=== PATIENT | male | born 1935 | race Caucasian/White ===

== ENCOUNTER 2016-09-05 15:33 | Inpatient (IN) | payer OTHER, MEDICARE ==
[~2016-09-05] VITALS: Ht 172.7 cm; Wt 80.2 kg
[~2016-09-05 15:33] MED LIST: AMLO10TA2 PO; AMLO5TAB2 PO; APIX5TAB PO; ASPI-496 PO; ATOR20TA9 PO; BACL-19 PO; CALC0.25 PO; CHOL20003 PO; CLON0.1T PO; DILT60TA30 PO; FAMO-79 PO; FINA5TAB4 PO; FOLI-17 PO; FURO40TA6 PO; GABA300C10 PO; GLIP5TAB10 PO; HYDR-3342 PO; HYDR-3343 PO; LISI40TA PO; METO50TA82 PO; MULT1TAB16 PO; OMEG-14 PO; POTA10TA31 PO; PRED10TA PO; SIMV40TA3 PO; TAMS0.4C2 PO
[2016-09-05] MEDS ORDERED: MAGNESIUM SULFATE 1 GM, THIAMINE 100 MG, FOLIC ACID 1 MG, MVI ADULT 10 ML in SODIUM CHL... IV ONE (17:30)
[2016-09-05] MEDS ORDERED: LORazepam 1MG TABLET PO ONE (17:30)
[2016-09-05] MEDS ORDERED: LORazepam 2 MG/ML, 1ML ONE ×2 (17:46→20:06)
[2016-09-05] MEDS ORDERED: LORazepam 1MG TABLET ONE (17:56)
[2016-09-05 18:10] LABS: ASPARTATE AMINO TRANSFERASE 109 U/L (15-37); BLOOD UREA NITROGEN 24 mg/dL (7-18)
[2016-09-05 18:49] LABS: IS PT STATUS REG ER OR PRE ER? YES
[2016-09-05] MEDS ORDERED: LORazepam 2 MG/ML, 1ML IVPush STA (19:52)
[2016-09-05] MEDS ORDERED: DILTIAZEM 5 MG/ML, 5ML ONE (20:13)
[2016-09-05] MEDS ORDERED: DILTIAZEM 5 MG/ML, 5ML IVPush ONE (20:30)
[2016-09-05] MEDS ORDERED: LORazepam 2 MG/ML, 1ML IVPush ONE (20:30)
[2016-09-05] MEDS ORDERED: SODIUM CHLORIDE 0.9% 1,000 ML IV SCH (20:37)
[2016-09-05] MEDS ORDERED: ENOXAPARIN 40 MG/0.4 ML SQ SCH (21:00)
[2016-09-05] MEDS ORDERED: LORazepam 2 MG/ML, 1ML IV PRN (21:00)
[2016-09-05] MEDS ORDERED: LORazepam 0.5MG TABLET PO PRN (21:00)
[2016-09-05] MEDS ORDERED: ENALAPRILAT 1.25 MG/ML, 2ML IV PRN (21:00)
[2016-09-05] MEDS ORDERED: LABETALOL 5MG/ML, 20ML IVPush PRN (21:00)
[2016-09-05] MEDS ORDERED: HYDROcodone/APAP 5/325 TABLET PO PRN (21:00)
[2016-09-05] MEDS ORDERED: DOCUSATE 100 MG CAPSULE PO PRN (21:00)
[2016-09-05] MEDS ORDERED: METOPROLOL TARTRATE 25 MG TABLET PO SCH (21:00)
[2016-09-05] MEDS ORDERED: POLYETHYLENE GLYCOL 17 GM PACKET PO PRN (21:00)
[2016-09-05] MEDS ORDERED: LORazepam 1MG TABLET PO PRN (21:00)
[2016-09-05] MEDS ORDERED: ONDANSETRON 2MG/ML, 2ML IVPush PRN (21:00)
[2016-09-05] MEDS ORDERED: hydrALAzine 20 MG/ML, 1ML IV PRN (21:00)
[2016-09-05] MEDS ORDERED: ACETAMINOPHEN 325 MG TABLET PO PRN (21:00)
[2016-09-05] MEDS ORDERED: METOPROLOL TARTRATE 50 MG TABLET PO SCH (21:00)
[2016-09-05] MEDS ORDERED: morphine SULFATE 10 MG/ML, 1ML IVPush PRN (21:00)
[2016-09-05] MEDS: APIXABAN/LOVENOX MC SCH ×3 (22:30→23:45)
[2016-09-05] MEDS ORDERED: APIXABAN/LOVENOX MC SCH (22:30)
[2016-09-05] MEDS: LORazepam 2 MG/ML, 1ML IV PRN (22:34)
[2016-09-05 22:48] VITALS: BP 134/64
[2016-09-06] MEDS: APIXABAN/LOVENOX MC SCH ×3 (00:30→01:45)
[2016-09-06 01:26] VITALS: BP 156/80
[2016-09-06] MEDS: GABAPENTIN 300 MG CAPSULE PO SCH ×2 (01:34→20:28)
[2016-09-06] MEDS: METOPROLOL TARTRATE 50 MG TABLET PO SCH ×3 (01:34→20:28)
[2016-09-06] MEDS: MULTIVITAMINS/MINERALS TABLET PO SCH ×3 (01:34→20:28)
[2016-09-06] MEDS: FUROSEMIDE 40 MG/4 ML IV SCH ×2 (01:49→10:36)
[2016-09-06] MEDS: APIXABAN 5 MG TABLET PO SCH ×3 (02:00→20:27)
[2016-09-06] MEDS: LORazepam 2 MG/ML, 1ML IV PRN (02:10)
[2016-09-06 05:37] LABS: BLOOD UREA NITROGEN 23 mg/dL (7-18)
[2016-09-06 05:40] LABS: ASPARTATE AMINO TRANSFERASE 74 U/L (15-37)
[2016-09-06 06:53] VITALS: BP_SYST 162; BP_SYST 175; BP_DIAS 74; BP_DIAS 82
[2016-09-06] MEDS: FOLIC ACID 1 MG TABLET PO SCH (09:00)
[2016-09-06] MEDS: THIAMINE 100MG TABLET PO SCH (09:00)
[2016-09-06] MEDS: SENNA/DOCUSATE TABLET PO SCH (09:00)
[2016-09-06] MEDS: FINASTERIDE 5 MG TABLET PO SCH (09:00)
[2016-09-06] MEDS: TAMSULOSIN 0.4 MG CAP.ER.24H PO SCH (09:00)
[2016-09-06 20:09] VITALS: BP 134/69
[2016-09-07 02:57] VITALS: BP 150/78
[2016-09-07 05:30] LABS: BLOOD UREA NITROGEN 20 mg/dL (7-18)
[2016-09-07 08:47] VITALS: BP 146/77
[2016-09-07] MEDS: APIXABAN 5 MG TABLET PO SCH ×2 (08:48→20:22)
[2016-09-07] MEDS: METOPROLOL TARTRATE 50 MG TABLET PO SCH ×2 (08:48→20:23)
[2016-09-07] MEDS: FOLIC ACID 1 MG TABLET PO SCH (08:48)
[2016-09-07] MEDS: MULTIVITAMINS/MINERALS TABLET PO SCH ×2 (08:48→20:23)
[2016-09-07] MEDS: TAMSULOSIN 0.4 MG CAP.ER.24H PO SCH (08:48)
[2016-09-07] MEDS: CALCITRIOL 0.25 MCG CAPSULE PO SCH (08:49)
[2016-09-07] MEDS: THIAMINE 100MG TABLET PO SCH (08:49)
[2016-09-07] MEDS: FINASTERIDE 5 MG TABLET PO SCH (08:49)
[2016-09-07] MEDS: SENNA/DOCUSATE TABLET PO SCH (08:50)
[2016-09-07] MEDS ORDERED: MAGNESIUM SULFATE PMX 2GM/50ML 50 ML IV ONE (11:00)
[2016-09-07 13:39] VITALS: BP 105/62
[2016-09-07 19:18] VITALS: BP 162/85
[2016-09-07] MEDS: GABAPENTIN 300 MG CAPSULE PO SCH (20:23)
[2016-09-08 02:10] VITALS: BP 178/103
[2016-09-08 05:43] LABS: BLOOD UREA NITROGEN 20 mg/dL (7-18)
[2016-09-08 05:47] LABS: ASPARTATE AMINO TRANSFERASE 53 U/L (15-37)
[2016-09-08 06:52] VITALS: BP 155/100
[2016-09-08] MEDS: TAMSULOSIN 0.4 MG CAP.ER.24H PO SCH (08:26)
[2016-09-08] MEDS: APIXABAN 5 MG TABLET PO SCH ×2 (08:26→20:47)
[2016-09-08] MEDS: FOLIC ACID 1 MG TABLET PO SCH (08:26)
[2016-09-08] MEDS: METOPROLOL TARTRATE 50 MG TABLET PO SCH ×2 (08:27→21:13)
[2016-09-08] MEDS: FINASTERIDE 5 MG TABLET PO SCH (08:27)
[2016-09-08] MEDS: MAGNESIUM OXIDE 400 MG TABLET PO SCH (08:27)
[2016-09-08] MEDS: MULTIVITAMINS/MINERALS TABLET PO SCH ×2 (08:27→20:47)
[2016-09-08] MEDS: THIAMINE 100MG TABLET PO SCH (08:27)
[2016-09-08] MEDS: SENNA/DOCUSATE TABLET PO SCH (08:27)
[2016-09-08] MEDS ORDERED: MAGNESIUM SULFATE PMX 2GM/50ML 50 ML IV ONE (10:00)
[2016-09-08] MEDS: POTASSIUM CHLORIDE 20 MEQ TAB.ER.PRT PO SCH ×3 (10:59→21:14)
[2016-09-08 13:00] VITALS: BP 100/64
[2016-09-08 19:47] VITALS: BP 159/81
[2016-09-08] MEDS: GABAPENTIN 300 MG CAPSULE PO SCH (20:47)
[2016-09-09 01:05] VITALS: BP 174/81
[2016-09-09 05:56] LABS: BLOOD UREA NITROGEN 18 mg/dL (7-18)
[2016-09-09] MEDS: METOPROLOL TARTRATE 50 MG TABLET PO SCH (07:39)
[2016-09-09 07:54] VITALS: BP 174/85
[2016-09-09] MEDS: FINASTERIDE 5 MG TABLET PO SCH (08:02)
[2016-09-09] MEDS: MAGNESIUM OXIDE 400 MG TABLET PO SCH (08:02)
[2016-09-09] MEDS: MULTIVITAMINS/MINERALS TABLET PO SCH ×2 (08:02→19:41)
[2016-09-09] MEDS: THIAMINE 100MG TABLET PO SCH (08:02)
[2016-09-09] MEDS: SENNA/DOCUSATE TABLET PO SCH (08:03)
[2016-09-09] MEDS: TAMSULOSIN 0.4 MG CAP.ER.24H PO SCH (08:03)
[2016-09-09] MEDS: APIXABAN 5 MG TABLET PO SCH ×2 (08:03→19:41)
[2016-09-09] MEDS: FOLIC ACID 1 MG TABLET PO SCH (08:03)
[2016-09-09 09:38] VITALS: BP 128/73
[2016-09-09] MEDS ORDERED: MAGNESIUM SULFATE PMX 2GM/50ML 50 ML IV ONE (11:00)
[2016-09-09 14:50] VITALS: BP 111/70
[2016-09-09] MEDS: CIPROFLOXACIN OPHTH SOLN 0.3%, 5ML EACHEYE SCH ×2 (15:49→19:41)
[2016-09-09] MEDS: GABAPENTIN 300 MG CAPSULE PO SCH (19:41)
[2016-09-09] MEDS: METOPROLOL TARTRATE 25 MG TABLET PO SCH (19:41)
[2016-09-09 19:44] VITALS: BP 132/71
[2016-09-10 01:18] VITALS: BP 159/81
[2016-09-10 05:57] LABS: BLOOD UREA NITROGEN 16 mg/dL (7-18)
[2016-09-10 08:36] VITALS: BP 147/89
[2016-09-10] MEDS: THIAMINE 100MG TABLET PO SCH (08:37)
[2016-09-10] MEDS: APIXABAN 5 MG TABLET PO SCH (08:37)
[2016-09-10] MEDS: FOLIC ACID 1 MG TABLET PO SCH (08:37)
[2016-09-10] MEDS: TAMSULOSIN 0.4 MG CAP.ER.24H PO SCH (08:37)
[2016-09-10] MEDS: FINASTERIDE 5 MG TABLET PO SCH (08:37)
[2016-09-10] MEDS: SENNA/DOCUSATE TABLET PO SCH (08:38)
[2016-09-10] MEDS: MAGNESIUM OXIDE 400 MG TABLET PO SCH (08:38)
[2016-09-10] MEDS: METOPROLOL TARTRATE 25 MG TABLET PO SCH (08:38)
[2016-09-10] MEDS: MULTIVITAMINS/MINERALS TABLET PO SCH (08:38)
[2016-09-10] MEDS: CALCITRIOL 0.25 MCG CAPSULE PO SCH (08:38)
[2016-09-10] MEDS: CIPROFLOXACIN OPHTH SOLN 0.3%, 5ML EACHEYE SCH ×2 (08:38→15:31)
[2016-09-10 13:07] VITALS: BP 163/84
[2016-09-10] MEDS ORDERED: THIA100T6 PO (16:33)
[2016-09-10] MEDS ORDERED: METO25TA35 PO (16:33)
[2016-09-10] MEDS ORDERED: CIPR2.5D EACHEYE (16:33)
[2016-09-10] MEDS ORDERED: HYDR-3342 PO (16:33)
[2016-09-10] MEDS ORDERED: MAGN400T26 PO (16:33)
== END 2016-09-10 18:33 | disposition home or self-care (01) | DRG 682 ==
LOC: ED 20:00 → EDIP 20:11 → SUATTDRO 20:24 → ED 20:27 → 5SO 22:01
PROVIDERS: ADMIT Family Medicine; ATTEND Family Medicine
DX: N17.9 Acute kidney failure, unspecified (principal); E43 Unspecified severe protein-calorie malnutrition; D68.69 Other thrombophilia; F10.239 Alcohol dependence with withdrawal, unspecified; E87.1 Hypo-osmolality and hyponatremia; F32.0 Major depressive disorder, single episode, mild; I12.9 Hypertensive chronic kidney disease with stage 1 through stage 4 chronic kidney disease, or unspecified chronic kidney disease; N18.2 Chronic kidney disease, stage 2 (mild); F43.21 Adjustment disorder with depressed mood; I95.9 Hypotension, unspecified; I48.0 Paroxysmal atrial fibrillation; D69.6 Thrombocytopenia, unspecified; E78.5 Hyperlipidemia, unspecified; E83.42 Hypomagnesemia; E87.6 Hypokalemia; F41.9 Anxiety disorder, unspecified; H10.32 Unspecified acute conjunctivitis, left eye; N40.0 Benign prostatic hyperplasia without lower urinary tract symptoms; R62.7 Adult failure to thrive; Z88.6 Allergy status to analgesic agent; Z79.01 Long term (current) use of anticoagulants; Z80.9 Family history of malignant neoplasm, unspecified; Z82.49 Family history of ischemic heart disease and other diseases of the circulatory system; Z87.891 Personal history of nicotine dependence
CPT/HCPCS: 36415; 71010; 80048; 80053; 81001; 82550; 82607; 82746; 82962; 83735; 84443; 84484; 85025; 87324; 93005; 96365; 96366; 96375; J1940; J3411; J3475; J2060; J7030

== ENCOUNTER 2016-11-04 13:11 | Emergency (ER) | payer OTHER, MEDICARE ==
[~2016-11-04] VITALS: Ht 170.2 cm; Wt 71.5 kg
[~2016-11-04 13:11] MED LIST changes: +CHOL2000 PO; -CHOL20003 PO; +CIPR2.5D EACHEYE; +MAGN400T26 PO; +METO25TA35 PO; +THIA100T6 PO
[2016-11-04 13:13] VITALS: BP 169/87
== END 2016-11-04 15:39 | disposition home or self-care (01) ==
LOC: ED 15:10
DX: E11.40 Type 2 diabetes mellitus with diabetic neuropathy, unspecified (principal); E11.65 Type 2 diabetes mellitus with hyperglycemia; E78.5 Hyperlipidemia, unspecified; K21.9 Gastro-esophageal reflux disease without esophagitis; Z87.891 Personal history of nicotine dependence; I48.91 Unspecified atrial fibrillation
CPT/HCPCS: 82962; 93005; 99284

== ENCOUNTER 2016-11-13 11:11 | Emergency (ER) | payer OTHER, MEDICARE ==
[~2016-11-13] VITALS: Ht 170.2 cm; Wt 72.5 kg
[2016-11-13 11:20] VITALS: BP 175/84
== END 2016-11-13 16:53 | disposition home or self-care (01) ==
LOC: ED 15:43
DX: S00.81XA Abrasion of other part of head, initial encounter (principal); W01.0XXA Fall on same level from slipping, tripping and stumbling without subsequent striking against object, initial encounter; Y93.89 Activity, other specified; Y92.89 Other specified places as the place of occurrence of the external cause; Y99.9 Unspecified external cause status; M17.11 Unilateral primary osteoarthritis, right knee; M47.892 Other spondylosis, cervical region; M25.461 Effusion, right knee; I10 Essential (primary) hypertension; E11.65 Type 2 diabetes mellitus with hyperglycemia; K21.9 Gastro-esophageal reflux disease without esophagitis; E78.5 Hyperlipidemia, unspecified; F10.20 Alcohol dependence, uncomplicated; I48.91 Unspecified atrial fibrillation; F17.210 Nicotine dependence, cigarettes, uncomplicated
CPT/HCPCS: 70450; 72125; 99284

== ENCOUNTER → 2019-07-21 | Outpatient (CLI) | payer MEDICARE ==
[~2019-07-21] MED LIST changes: +AMLO-150 PO; -AMLO10TA2 PO; +AMLO10TA8 PO; -AMLO5TAB2 PO; +ATOR20TA37 PO; -ATOR20TA9 PO; -CLON0.1T PO; +CLON0.1T22 PO; +GLIP10TA13 PO; +LINE600T15 PO; +METF500T17 PO; +PANT40TA5 PO; +SIMV40TA20 PO; -SIMV40TA3 PO; -THIA100T6 PO; +THIA100T67 PO
== END | disposition home or self-care (01) ==
LOC: WOUND 10:37
PROVIDERS: ATTEND Nurse Practitioner Family
DX: E11.622 Type 2 diabetes mellitus with other skin ulcer (principal); L89.516 Pressure-induced deep tissue damage of right ankle; L97.311 Non-pressure chronic ulcer of right ankle limited to breakdown of skin; E11.621 Type 2 diabetes mellitus with foot ulcer; L97.511 Non-pressure chronic ulcer of other part of right foot limited to breakdown of skin; I25.10 Atherosclerotic heart disease of native coronary artery without angina pectoris; I42.9 Cardiomyopathy, unspecified; E78.5 Hyperlipidemia, unspecified; I48.0 Paroxysmal atrial fibrillation; I11.0 Hypertensive heart disease with heart failure; I50.9 Heart failure, unspecified; F32.9 Major depressive disorder, single episode, unspecified; Z87.891 Personal history of nicotine dependence
CPT/HCPCS: 97597; 99215

== ENCOUNTER 2019-07-28 08:30 | Outpatient (CLI) | payer MEDICARE | END 2019-07-28 23:59 | disposition home or self-care (01) | LOC: WOUND 08:30 | PROVIDERS: ATTEND Nurse Practitioner Family | DX: E11.622 Type 2 diabetes mellitus with other skin ulcer (principal); L89.516 Pressure-induced deep tissue damage of right ankle; L97.311 Non-pressure chronic ulcer of right ankle limited to breakdown of skin; E11.621 Type 2 diabetes mellitus with foot ulcer; L97.511 Non-pressure chronic ulcer of other part of right foot limited to breakdown of skin; I25.10 Atherosclerotic heart disease of native coronary artery without angina pectoris; I42.9 Cardiomyopathy, unspecified; E78.5 Hyperlipidemia, unspecified; I48.0 Paroxysmal atrial fibrillation; I11.0 Hypertensive heart disease with heart failure; I50.9 Heart failure, unspecified; F32.9 Major depressive disorder, single episode, unspecified; Z87.891 Personal history of nicotine dependence | CPT/HCPCS: 97597 ==

== ENCOUNTER 2019-07-30 17:30 | Inpatient (IN) | payer OTHER, MEDICARE ==
[~2019-07-30] VITALS: Ht 172.7 cm; Wt 70.2 kg
[2019-07-30] MEDS ORDERED: ACETAMINOPHEN 500 MG TABLET ONE (17:52)
[2019-07-30] MEDS ORDERED: ACETAMINOPHEN 500 MG TABLET PO ONE (18:00)
[2019-07-30] MEDS ORDERED: SODIUM CHLORIDE FLUSH 10ML SYR IVF ONE (18:00)
[2019-07-30] MEDS ORDERED: SODIUM CHLORIDE 0.9% 1,000ML IVBOLUS ONE ×2 (18:00→19:30)
[2019-07-30] MEDS ORDERED: PLEASE ENTER HEIGHT AND WEIGHT MC SCH (18:00)
[2019-07-30 18:15] LABS: MEAN CORPUSCULAR HEMOGLOBIN 33.2 pg (27.5-34.5); MEAN CORPUSCULAR HGB CONC 33.3 g/dL (33.2-36.2); MEAN CORPUSCULAR VOLUME 99.7 fL (81-97); MEAN PLATELET VOLUME 8.3 fL (7.4-10.4); PLATELET COUNT 221 x10^3/uL (130-400)
[2019-07-30 18:28] LABS: ALANINE AMINOTRANSFERASE 20 U/L (12-78); ALBUMIN 3.3 g/dL (3.4-5.0); ANION GAP 8 mmol/L (5-15); CALCIUM 9.1 mg/dL (8.5-10.1); CHLORIDE 102 mmol/L (98-107); CREATININE 1.32 mg/dL (0.7-1.3)
[2019-07-30 18:30] LABS: ALKALINE PHOSPHATASE 108 U/L (45-117); BILIRUBIN,TOTAL 0.8 mg/dL (0.2-1.0); TOTAL PROTEIN 7.3 g/dL (6.4-8.2)
[2019-07-30 18:58] LABS: BASOPHILS # (AUTO) 0.01 x10^3/uL (0-0.1); BASOPHILS % (AUTO) 0 % (0-1); EOSINOPHILS % (AUTO) 0 % (1-7); LYMPHOCYTES # (AUTO) 0.39 x10^3/uL (1-3.4); LYMPHOCYTES % (AUTO) 2 % (22-44); MD SCAN; MONOCYTES # (AUTO) 0.51 x10^3/uL (0.2-0.8); MONOCYTES % (AUTO) 3 % (2-9); NEUTROPHILS # (AUTO) 16.33 x10^3/uL (1.8-6.8); NEUTROPHILS % (AUTO) 95 % (42-75)
[2019-07-30] MEDS ORDERED: PIPERACILLIN/TAZO/PMX 3.375GM 50 ML IV ONE (19:00)
--- NOTE | 2019-07-30 19:00 | NUR ---
REPORT RECEIVED FROM TOAN WHITTINGTON, REPORT GIVEN TO TOAN KAT WHO IS ASSUMING CARE AT THIS TIME.
--- NOTE | 2019-07-30 19:03 | NUR ---
EKG IN PROGRESS AT THIS TIME.
[2019-07-30] MEDS ORDERED: DOXY100C2 PO (19:05)
--- NOTE | 2019-07-30 19:06 | NUR ---
ASSUMED CARE OF PT. PT RESTING COMFORTABLY. MONITOR IN PLACE.
[2019-07-30] MEDS ORDERED: PIPERACILLIN/TAZO/PMX 3.375GM 50 ML ONE (19:09)
[2019-07-30] MEDS ORDERED: BISACODYL 10 MG SUPP PR PRN (19:30)
[2019-07-30] MEDS ORDERED: POLYETHYLENE GLYCOL 17 GM PACKET PO PRN (19:30)
[2019-07-30] MEDS ORDERED: SODIUM CHLORIDE FLUSH 10ML SYR IVF PRN (19:30)
[2019-07-30] MEDS ORDERED: ONDANSETRON ODT 4 MG PO PRN (19:30)
[2019-07-30 20:14] VITALS: BP 126/61
[2019-07-30] MEDS: INSULIN LISPRO 100 UNITS/ML, PEN SQ-INSULIN SCH (21:32)
[2019-07-30] MEDS: ATORVASTATIN 20 MG TABLET PO SCH (21:33)
[2019-07-30] MEDS: OMEGA-3/FISH OIL CAPSULE PO SCH (21:33)
[2019-07-30] MEDS: MULTIVITAMINS/MINERALS TABLET PO SCH (21:33)
[2019-07-30] MEDS: APIXABAN 5 MG TABLET PO SCH (21:33)
[2019-07-30] MEDS: DILTIAZEM 60 MG TABLET PO SCH (21:33)
[2019-07-30] MEDS: METOPROLOL TARTRATE 50 MG TAB PO SCH (21:33)
[2019-07-30] MEDS: SODIUM CHLORIDE 0.9% 1,000 ML IV SCH (21:34)
[2019-07-30] MEDS: ACETAMINOPHEN 325 MG TABLET PO PRN (23:34)
[2019-07-31 00:38] VITALS: BP 99/59
[2019-07-31] MEDS: AMPICILLIN/SULBACTAM 3 GM in SODIUM CHLORIDE 0.9% 100 ML IV SCH ×4 (01:03→19:53)
[2019-07-31] MEDS: PANTOPRAZOLE 40MG TABLET PO SCH (05:21)
[2019-07-31 05:52] LABS: ANION GAP 6 mmol/L (5-15); CALCIUM 8.5 mg/dL (8.5-10.1); CHLORIDE 108 mmol/L (98-107); CREATININE 1.25 mg/dL (0.7-1.3)
[2019-07-31 05:57] LABS: MEAN CORPUSCULAR HGB CONC 32.8 g/dL (33.2-36.2); MEAN CORPUSCULAR VOLUME 100.8 fL (81-97); RED BLOOD COUNT 3.58 x10^6/uL (4.38-5.82); RED CELL DISTRIBUTION WIDTH 18.2 % (9.4-14.8)
[2019-07-31 06:28] VITALS: BP 161/70
[2019-07-31 06:32] LABS: BASOPHILS # (AUTO) 0.02 x10^3/uL (0-0.1); BASOPHILS % (AUTO) 0 % (0-1); EOSINOPHILS % (AUTO) 0 % (1-7); LYMPHOCYTES # (AUTO) 0.81 x10^3/uL (1-3.4); LYMPHOCYTES % (AUTO) 6 % (22-44); MD SCAN; MONOCYTES # (AUTO) 0.37 x10^3/uL (0.2-0.8); MONOCYTES % (AUTO) 3 % (2-9); NEUTROPHILS # (AUTO) 13.35 x10^3/uL (1.8-6.8); NEUTROPHILS % (AUTO) 92 % (42-75)
[2019-07-31] MEDS: INSULIN LISPRO 100 UNITS/ML, PEN SQ-INSULIN SCH ×4 (07:42→21:11)
[2019-07-31] MEDS: SODIUM CHLORIDE 0.9% 1,000 ML IV SCH ×2 (08:39→22:53)
[2019-07-31] MEDS: DILTIAZEM 60 MG TABLET PO SCH ×2 (08:40→20:45)
[2019-07-31] MEDS: MULTIVITAMINS/MINERALS TABLET PO SCH ×2 (08:40→20:45)
[2019-07-31] MEDS: METOPROLOL TARTRATE 50 MG TAB PO SCH ×2 (08:40→20:45)
[2019-07-31] MEDS: OMEGA-3/FISH OIL CAPSULE PO SCH ×2 (08:40→20:45)
[2019-07-31] MEDS: APIXABAN 5 MG TABLET PO SCH ×2 (08:40→20:45)
[2019-07-31] MEDS: CALCITRIOL 0.25 MCG CAPSULE PO SCH (08:40)
[2019-07-31] MEDS: FOLIC ACID 1 MG TABLET PO SCH (08:40)
[2019-07-31] MEDS: SENNA/DOCUSATE TABLET PO SCH (08:41)
[2019-07-31] MEDS: THIAMINE 100MG TABLET PO SCH (08:41)
[2019-07-31] MEDS ORDERED: VANCOMYCIN PER PHARMACY MC PRN (10:00)
[2019-07-31] MEDS ORDERED: PHARMACOKINETIC MONITORING MC PRN (10:00)
[2019-07-31] MEDS ORDERED: PHARMACOKINETIC CONSULTATION MC ONE (10:00)
[2019-07-31] MEDS ORDERED: VANCOMYCIN 1,800 MG in SODIUM CHLORIDE 0.9% 250 ML IV ONE (10:00)
[2019-07-31] MEDS ORDERED: GADOTERATE 7.5 MMOL/15 ML SYR ONE (12:30)
[2019-07-31 13:29] VITALS: BP 151/61
[2019-07-31 18:19] VITALS: BP 154/69
[2019-07-31] MEDS: ATORVASTATIN 20 MG TABLET PO SCH (20:45)
[2019-08-01] VITALS (13 sets, daily range): BP systolic 153–232; BP diastolic 69–103
[2019-08-01] MEDS ORDERED: hydrALAzine 20 MG/ML, 1ML IV ONE (01:30)
[2019-08-01] MEDS: AMPICILLIN/SULBACTAM 3 GM in SODIUM CHLORIDE 0.9% 100 ML IV SCH ×4 (01:32→22:00)
[2019-08-01 05:35] LABS: BASOPHILS # (AUTO) 0.03 x10^3/uL (0-0.1); BASOPHILS % (AUTO) 0 % (0-1); EOSINOPHILS % (AUTO) 0 % (1-7); LYMPHOCYTES # (AUTO) 1.15 x10^3/uL (1-3.4); LYMPHOCYTES % (AUTO) 10 % (22-44); MD NO; MEAN CORPUSCULAR HEMOGLOBIN 33.3 pg (27.5-34.5); MEAN CORPUSCULAR HGB CONC 33.2 g/dL (33.2-36.2); MEAN CORPUSCULAR VOLUME 100.5 fL (81-97); MEAN PLATELET VOLUME 9.2 fL (7.4-10.4); MONOCYTES % (AUTO) 5 % (2-9); NEUTROPHILS # (AUTO) 10.26 x10^3/uL (1.8-6.8); NEUTROPHILS % (AUTO) 85 % (42-75); PLATELET COUNT 179 x10^3/uL (130-400); RED BLOOD COUNT 3.46 x10^6/uL (4.38-5.82); RED CELL DISTRIBUTION WIDTH 18.2 % (9.4-14.8)
[2019-08-01 05:49] LABS: ANION GAP 11 mmol/L (5-15); CALCIUM 8.6 mg/dL (8.5-10.1); CHLORIDE 105 mmol/L (98-107); CREATININE 1.27 mg/dL (0.7-1.3)
[2019-08-01 05:51] LABS: VANCOMYCIN,RANDOM 12.3 mcg/mL
[2019-08-01] MEDS: PANTOPRAZOLE 40MG TABLET PO SCH (05:54)
[2019-08-01] MEDS ORDERED: LABETALOL 5MG/ML, 20ML IVPush ONE (06:30)
[2019-08-01] MEDS: INSULIN LISPRO 100 UNITS/ML, PEN SQ-INSULIN SCH ×4 (07:29→22:07)
[2019-08-01] MEDS: THIAMINE 100MG TABLET PO SCH (08:55)
[2019-08-01] MEDS: SENNA/DOCUSATE TABLET PO SCH (08:55)
[2019-08-01] MEDS: FOLIC ACID 1 MG TABLET PO SCH (08:55)
[2019-08-01] MEDS: MULTIVITAMINS/MINERALS TABLET PO SCH ×2 (08:55→20:21)
[2019-08-01] MEDS: METOPROLOL TARTRATE 50 MG TAB PO SCH ×2 (08:55→20:21)
[2019-08-01] MEDS: OMEGA-3/FISH OIL CAPSULE PO SCH ×2 (08:55→20:20)
[2019-08-01] MEDS: DILTIAZEM 60 MG TABLET PO SCH ×2 (08:55→20:21)
[2019-08-01] MEDS: APIXABAN 5 MG TABLET PO SCH ×2 (08:55→20:21)
[2019-08-01] MEDS ORDERED: VANCOMYCIN 1,500 MG in SODIUM CHLORIDE 0.9% 250 ML IV SCH ×2 (09:00→22:00)
[2019-08-01] MEDS ORDERED: POTASSIUM CHLORIDE 20 MEQ TAB.ER.PRT PO ONE (10:00)
[2019-08-01] MEDS: ERGOCALCIFEROL 50,000 UNIT CAPSULE PO SCH (10:42)
[2019-08-01] MEDS ORDERED: MAGNESIUM SULFATE PMX 4GM/100M 100 ML IV ONE (11:00)
[2019-08-01] MEDS: CYANOCOBALOMIN 100MCG TABLET PO SCH (11:47)
[2019-08-01] MEDS ORDERED: FUROSEMIDE 20 MG/2 ML ONE (16:53)
[2019-08-01] MEDS: hydrALAzine 20 MG/ML, 1ML IV PRN ×3 (16:53→21:06)
[2019-08-01] MEDS ORDERED: ALBUTEROL SULFATE 2.5 MG/3 ML ONE (16:54)
[2019-08-01] MEDS ORDERED: FUROSEMIDE 20 MG/2 ML IV ONE (17:00)
[2019-08-01] MEDS ORDERED: LORazepam 2 MG/ML, 1ML IV PRN ×3 (17:30)
[2019-08-01] MEDS ORDERED: LORazepam 1MG TABLET PO PRN ×2 (17:30)
[2019-08-01] MEDS ORDERED: LABETALOL 20 MG/4 ML IVPush PRN ×2 (17:30→19:00)
[2019-08-01] MEDS ORDERED: ALBUTEROL SULFATE 2.5 MG/3 ML NPPB PRN (17:30)
[2019-08-01] MEDS: CHLORDIAZEPOXIDE 10 MG CAPSULE PO SCH ×2 (17:42→23:20)
[2019-08-01] MEDS ORDERED: LABETALOL 5MG/ML, 20ML ONE (18:45)
[2019-08-01] MEDS ORDERED: SODIUM CHLORIDE 0.9% 1,000 ML IV SCH (19:18)
[2019-08-01] MEDS: ATORVASTATIN 20 MG TABLET PO SCH (20:21)
[2019-08-02] VITALS (8 sets, daily range): BP systolic 91–178; BP diastolic 57–90
[2019-08-02] MEDS: PANTOPRAZOLE 40MG TABLET PO SCH (05:04)
[2019-08-02] MEDS: LORazepam 0.5MG TABLET PO PRN (05:04)
[2019-08-02 05:24] LABS: MEAN CORPUSCULAR HEMOGLOBIN 33.4 pg (27.5-34.5); MEAN CORPUSCULAR VOLUME 101.2 fL (81-97); MEAN PLATELET VOLUME 9.2 fL (7.4-10.4); PLATELET COUNT 192 x10^3/uL (130-400); RED BLOOD COUNT 3.64 x10^6/uL (4.38-5.82)
[2019-08-02 05:36] LABS: ANION GAP 11 mmol/L (5-15); CALCIUM 8.4 mg/dL (8.5-10.1); CHLORIDE 96 mmol/L (98-107)
[2019-08-02] MEDS: AMPICILLIN/SULBACTAM 3 GM in SODIUM CHLORIDE 0.9% 100 ML IV SCH (05:36)
[2019-08-02 05:58] LABS: BASOPHILS # (AUTO) 0.07 x10^3/uL (0-0.1); BASOPHILS % (AUTO) 1 % (0-1); EOSINOPHILS # (AUTO) 0.02 x10^3/uL (0-0.4); EOSINOPHILS % (AUTO) 0 % (1-7); LYMPHOCYTES # (AUTO) 1.13 x10^3/uL (1-3.4); LYMPHOCYTES % (AUTO) 8 % (22-44); MD SCAN; MONOCYTES # (AUTO) 0.58 x10^3/uL (0.2-0.8); MONOCYTES % (AUTO) 4 % (2-9); NEUTROPHILS % (AUTO) 87 % (42-75)
[2019-08-02 06:06] LABS: CREATININE 1.09 mg/dL (0.7-1.3)
[2019-08-02] MEDS: THIAMINE 100MG TABLET PO SCH (08:07)
[2019-08-02] MEDS: FOLIC ACID 1 MG TABLET PO SCH (08:07)
[2019-08-02] MEDS: CHLORDIAZEPOXIDE 10 MG CAPSULE PO SCH (08:07)
[2019-08-02] MEDS: CYANOCOBALOMIN 100MCG TABLET PO SCH (08:07)
[2019-08-02] MEDS: MULTIVITAMINS/MINERALS TABLET PO SCH ×2 (08:08→20:43)
[2019-08-02] MEDS: DILTIAZEM 60 MG TABLET PO SCH ×2 (08:08→20:44)
[2019-08-02] MEDS: OMEGA-3/FISH OIL CAPSULE PO SCH ×2 (08:08→20:44)
[2019-08-02] MEDS: APIXABAN 5 MG TABLET PO SCH ×2 (08:08→20:45)
[2019-08-02] MEDS: SENNA/DOCUSATE TABLET PO SCH (08:08)
[2019-08-02] MEDS: METOPROLOL TARTRATE 50 MG TAB PO SCH ×2 (08:08→20:44)
[2019-08-02] MEDS: INSULIN LISPRO 100 UNITS/ML, PEN SQ-INSULIN SCH ×4 (08:50→20:45)
[2019-08-02] MEDS ORDERED: POTASSIUM CHLORIDE 40 MEQ in SODIUM CHLORIDE 0.9% 500 ML IV ONE (10:00)
[2019-08-02] MEDS: SODIUM CHLORIDE 0.9% 1,000 ML IV SCH ×2 (11:24→20:48)
[2019-08-02] MEDS: CEFTRIAXONE PMX 2GM/50ML 50 ML IV SCH (11:24)
[2019-08-02] MEDS: ATORVASTATIN 20 MG TABLET PO SCH (20:45)
[2019-08-03 01:24] VITALS: BP 170/69
[2019-08-03] MEDS: PANTOPRAZOLE 40MG TABLET PO SCH (05:02)
[2019-08-03] MEDS: ACETAMINOPHEN 325 MG TABLET PO PRN (05:39)
[2019-08-03 06:02] LABS: ANION GAP 8 mmol/L (5-15); CALCIUM 7.8 mg/dL (8.5-10.1); CHLORIDE 101 mmol/L (98-107); CREATININE 0.99 mg/dL (0.7-1.3)
[2019-08-03 06:03] LABS: BASOPHILS # (AUTO) 0.02 x10^3/uL (0-0.1); BASOPHILS % (AUTO) 0 % (0-1); EOSINOPHILS # (AUTO) 0.03 x10^3/uL (0-0.4); EOSINOPHILS % (AUTO) 0 % (1-7); LYMPHOCYTES # (AUTO) 0.95 x10^3/uL (1-3.4); LYMPHOCYTES % (AUTO) 12 % (22-44); MD NO; MEAN CORPUSCULAR HEMOGLOBIN 33.5 pg (27.5-34.5); MEAN CORPUSCULAR HGB CONC 33.2 g/dL (33.2-36.2); MEAN CORPUSCULAR VOLUME 101.1 fL (81-97); MEAN PLATELET VOLUME 9.2 fL (7.4-10.4); MONOCYTES # (AUTO) 0.53 x10^3/uL (0.2-0.8); MONOCYTES % (AUTO) 7 % (2-9); NEUTROPHILS # (AUTO) 6.41 x10^3/uL (1.8-6.8); NEUTROPHILS % (AUTO) 81 % (42-75); PLATELET COUNT 159 x10^3/uL (130-400); RED BLOOD COUNT 3.27 x10^6/uL (4.38-5.82); RED CELL DISTRIBUTION WIDTH 18.2 % (9.4-14.8)
[2019-08-03] MEDS: INSULIN LISPRO 100 UNITS/ML, PEN SQ-INSULIN SCH ×4 (07:00→20:28)
[2019-08-03 07:05] VITALS: BP 175/78
[2019-08-03] MEDS: OMEGA-3/FISH OIL CAPSULE PO SCH ×2 (07:52→20:12)
[2019-08-03] MEDS: METOPROLOL TARTRATE 50 MG TAB PO SCH ×2 (07:53→20:12)
[2019-08-03] MEDS: CALCITRIOL 0.25 MCG CAPSULE PO SCH (07:53)
[2019-08-03] MEDS: THIAMINE 100MG TABLET PO SCH (07:53)
[2019-08-03] MEDS: SENNA/DOCUSATE TABLET PO SCH (07:53)
[2019-08-03] MEDS: FOLIC ACID 1 MG TABLET PO SCH (07:53)
[2019-08-03] MEDS: MULTIVITAMINS/MINERALS TABLET PO SCH ×2 (07:53→20:12)
[2019-08-03] MEDS: APIXABAN 5 MG TABLET PO SCH ×2 (07:53→20:12)
[2019-08-03] MEDS: CYANOCOBALOMIN 100MCG TABLET PO SCH (07:53)
[2019-08-03] MEDS: DILTIAZEM 60 MG TABLET PO SCH ×2 (07:53→20:12)
[2019-08-03] MEDS ORDERED: POTASSIUM CHLORIDE 20 MEQ TAB.ER.PRT PO ONE (09:00)
[2019-08-03] MEDS: LORazepam 0.5MG TABLET PO PRN (09:35)
[2019-08-03] MEDS: CEFTRIAXONE PMX 2GM/50ML 50 ML IV SCH (09:43)
[2019-08-03] MEDS: SODIUM CHLORIDE 0.9% 1,000 ML IV SCH (09:44)
[2019-08-03] MEDS ORDERED: HALOPERIDOL 5 MG/ML IM PRN (10:30)
[2019-08-03 19:15] VITALS: BP 186/86
[2019-08-03] MEDS: ATORVASTATIN 20 MG TABLET PO SCH (20:12)
[2019-08-04 00:22] VITALS: BP 185/88
[2019-08-04] MEDS: hydrALAzine 20 MG/ML, 1ML IV PRN (00:30)
[2019-08-04 02:42] LABS: MICROSCOPIC AUTO
[2019-08-04] MEDS: LORazepam 0.5MG TABLET PO PRN (02:44)
[2019-08-04] MEDS: SODIUM CHLORIDE 0.9% 1,000 ML IV SCH ×2 (05:00→17:29)
[2019-08-04] MEDS ORDERED: MORPHINE SULFATE 4 MG/ML, 1ML IVPush ONE (07:00)
[2019-08-04] MEDS ORDERED: LIDOCAINE 2%,20 ML JEL.PF.APP MM ONE (07:00)
[2019-08-04 07:12] VITALS: BP 146/67
[2019-08-04] MEDS: MULTIVITAMINS/MINERALS TABLET PO SCH ×2 (08:31→20:01)
[2019-08-04] MEDS: APIXABAN 5 MG TABLET PO SCH ×2 (08:31→20:01)
[2019-08-04] MEDS: INSULIN LISPRO 100 UNITS/ML, PEN SQ-INSULIN SCH ×4 (08:31→20:00)
[2019-08-04] MEDS: FOLIC ACID 1 MG TABLET PO SCH (08:31)
[2019-08-04] MEDS: THIAMINE 100MG TABLET PO SCH (08:31)
[2019-08-04] MEDS: OMEGA-3/FISH OIL CAPSULE PO SCH ×2 (08:31→20:00)
[2019-08-04] MEDS: DILTIAZEM 60 MG TABLET PO SCH ×2 (08:32→20:01)
[2019-08-04] MEDS: CYANOCOBALOMIN 100MCG TABLET PO SCH (08:32)
[2019-08-04] MEDS: METOPROLOL TARTRATE 50 MG TAB PO SCH ×2 (08:32→20:00)
[2019-08-04] MEDS: PANTOPRAZOLE 40MG TABLET PO SCH (08:32)
[2019-08-04] MEDS: SENNA/DOCUSATE TABLET PO SCH (08:32)
[2019-08-04] MEDS: CEFTRIAXONE PMX 2GM/50ML 50 ML IV SCH (10:49)
[2019-08-04] MEDS: TAMSULOSIN 0.4 MG CAP.ER.24H PO SCH (10:49)
[2019-08-04 15:49] VITALS: BP 159/90
[2019-08-04 19:12] VITALS: BP 160/84
[2019-08-04] MEDS: ATORVASTATIN 20 MG TABLET PO SCH (20:01)
[2019-08-05 01:04] VITALS: BP 175/75
[2019-08-05 05:25] LABS: ANION GAP 8 mmol/L (5-15); CALCIUM 7.9 mg/dL (8.5-10.1); CHLORIDE 103 mmol/L (98-107)
[2019-08-05 05:26] LABS: CREATININE 1.08 mg/dL (0.7-1.3)
[2019-08-05] MEDS: PANTOPRAZOLE 40MG TABLET PO SCH (06:04)
[2019-08-05] MEDS: INSULIN LISPRO 100 UNITS/ML, PEN SQ-INSULIN SCH ×4 (07:00→20:22)
[2019-08-05 08:19] VITALS: BP 165/72
[2019-08-05] MEDS: CEFTRIAXONE PMX 2GM/50ML 50 ML IV SCH (09:02)
[2019-08-05] MEDS: APIXABAN 5 MG TABLET PO SCH ×2 (09:03→20:21)
[2019-08-05] MEDS: TAMSULOSIN 0.4 MG CAP.ER.24H PO SCH (09:03)
[2019-08-05] MEDS: THIAMINE 100MG TABLET PO SCH (09:03)
[2019-08-05] MEDS: SENNA/DOCUSATE TABLET PO SCH (09:03)
[2019-08-05] MEDS: CYANOCOBALOMIN 100MCG TABLET PO SCH (09:03)
[2019-08-05] MEDS: MULTIVITAMINS/MINERALS TABLET PO SCH ×2 (09:03→20:21)
[2019-08-05] MEDS: OMEGA-3/FISH OIL CAPSULE PO SCH ×2 (09:03→20:21)
[2019-08-05] MEDS: METOPROLOL TARTRATE 50 MG TAB PO SCH ×2 (09:03→20:21)
[2019-08-05] MEDS: FOLIC ACID 1 MG TABLET PO SCH (09:03)
[2019-08-05] MEDS: DILTIAZEM 60 MG TABLET PO SCH ×2 (09:03→20:21)
[2019-08-05] MEDS: POTASSIUM CHLORIDE 20 MEQ TAB.ER.PRT PO SCH ×2 (11:20→20:21)
[2019-08-05] MEDS ORDERED: MAGNESIUM SULFATE PMX 2GM/50ML 50 ML IV ONE (11:30)
[2019-08-05 14:42] VITALS: BP 168/72
[2019-08-05] MEDS: SODIUM CHLORIDE 0.9% 1,000 ML IV SCH (16:37)
[2019-08-05 18:41] VITALS: BP 168/72
[2019-08-05] MEDS: ATORVASTATIN 20 MG TABLET PO SCH (20:21)
[2019-08-06 00:34] VITALS: BP 150/78
[2019-08-06] MEDS: SODIUM CHLORIDE 0.9% 1,000 ML IV SCH (04:19)
[2019-08-06] MEDS: PANTOPRAZOLE 40MG TABLET PO SCH (05:45)
[2019-08-06 06:24] LABS: ANION GAP 7 mmol/L (5-15); CHLORIDE 107 mmol/L (98-107); CREATININE 1.01 mg/dL (0.7-1.3)
[2019-08-06] MEDS: INSULIN LISPRO 100 UNITS/ML, PEN SQ-INSULIN SCH ×4 (07:00→20:57)
[2019-08-06 07:27] VITALS: BP 168/75
[2019-08-06] MEDS: TAMSULOSIN 0.4 MG CAP.ER.24H PO SCH (08:28)
[2019-08-06] MEDS: MULTIVITAMINS/MINERALS TABLET PO SCH ×2 (08:28→20:55)
[2019-08-06] MEDS: FOLIC ACID 1 MG TABLET PO SCH (08:28)
[2019-08-06] MEDS: CYANOCOBALOMIN 100MCG TABLET PO SCH (08:28)
[2019-08-06] MEDS: SENNA/DOCUSATE TABLET PO SCH (08:28)
[2019-08-06] MEDS: METOPROLOL TARTRATE 50 MG TAB PO SCH ×2 (08:28→20:55)
[2019-08-06] MEDS: OMEGA-3/FISH OIL CAPSULE PO SCH ×2 (08:28→20:55)
[2019-08-06] MEDS: THIAMINE 100MG TABLET PO SCH (08:29)
[2019-08-06] MEDS: CEFTRIAXONE PMX 2GM/50ML 50 ML IV SCH (08:29)
[2019-08-06] MEDS: DILTIAZEM 60 MG TABLET PO SCH ×2 (08:29→20:55)
[2019-08-06] MEDS: APIXABAN 5 MG TABLET PO SCH ×2 (08:29→20:55)
[2019-08-06 20:03] VITALS: BP 170/84
[2019-08-06] MEDS: ATORVASTATIN 20 MG TABLET PO SCH (20:56)
[2019-08-07] VITALS (8 sets, daily range): BP systolic 121–187; BP diastolic 63–84
[2019-08-07] MEDS: PANTOPRAZOLE 40MG TABLET PO SCH (05:12)
[2019-08-07] MEDS: hydrALAzine 20 MG/ML, 1ML IV PRN (07:01)
[2019-08-07] MEDS: INSULIN LISPRO 100 UNITS/ML, PEN SQ-INSULIN SCH ×5 (07:48→21:19)
[2019-08-07] MEDS: DILTIAZEM 60 MG TABLET PO SCH ×2 (08:59→21:15)
[2019-08-07] MEDS: MULTIVITAMINS/MINERALS TABLET PO SCH ×2 (09:00→21:15)
[2019-08-07] MEDS: METOPROLOL TARTRATE 50 MG TAB PO SCH ×2 (09:00→21:18)
[2019-08-07] MEDS: OMEGA-3/FISH OIL CAPSULE PO SCH ×2 (09:00→21:15)
[2019-08-07] MEDS: FOLIC ACID 1 MG TABLET PO SCH (09:00)
[2019-08-07] MEDS: CYANOCOBALOMIN 100MCG TABLET PO SCH (09:00)
[2019-08-07] MEDS: THIAMINE 100MG TABLET PO SCH (09:00)
[2019-08-07] MEDS: APIXABAN 5 MG TABLET PO SCH ×2 (09:00→21:15)
[2019-08-07] MEDS: TAMSULOSIN 0.4 MG CAP.ER.24H PO SCH (09:00)
[2019-08-07] MEDS: SENNA/DOCUSATE TABLET PO SCH (09:01)
[2019-08-07] MEDS: CEFTRIAXONE PMX 2GM/50ML 50 ML IV SCH (09:54)
[2019-08-07] MEDS: CALCITRIOL 0.25 MCG CAPSULE PO SCH (09:54)
[2019-08-07] MEDS: ATORVASTATIN 20 MG TABLET PO SCH (21:15)
[2019-08-07] MEDS: metFORMIN 500 MG TABLET PO SCH (21:15)
[2019-08-07 23:10] LABS: INTERNATIONAL NORMALIZED RATIO 1.12 (0.93-1.1); PROTHROMBIN TIME 11.9 Seconds (9.6-11.5)
[2019-08-07 23:31] LABS: MICROSCOPIC INDICATED
[2019-08-08] MEDS: PANTOPRAZOLE 40MG TABLET PO SCH (06:21)
[2019-08-08 06:26] VITALS: BP 188/83
[2019-08-08] MEDS: hydrALAzine 20 MG/ML, 1ML IV PRN (06:34)
[2019-08-08] MEDS: INSULIN LISPRO 100 UNITS/ML, PEN SQ-INSULIN SCH ×4 (07:41→21:00)
[2019-08-08 08:34] VITALS: BP 142/69
[2019-08-08] MEDS: OMEGA-3/FISH OIL CAPSULE PO SCH ×2 (09:24→21:27)
[2019-08-08] MEDS: DILTIAZEM 60 MG TABLET PO SCH ×2 (09:24→21:27)
[2019-08-08] MEDS: FOLIC ACID 1 MG TABLET PO SCH (09:24)
[2019-08-08] MEDS: CYANOCOBALOMIN 100MCG TABLET PO SCH (09:24)
[2019-08-08] MEDS: METOPROLOL TARTRATE 50 MG TAB PO SCH ×2 (09:24→21:27)
[2019-08-08] MEDS: APIXABAN 5 MG TABLET PO SCH ×2 (09:24→21:27)
[2019-08-08] MEDS: TAMSULOSIN 0.4 MG CAP.ER.24H PO SCH (09:24)
[2019-08-08] MEDS: metFORMIN 500 MG TABLET PO SCH ×2 (09:25→21:27)
[2019-08-08] MEDS: THIAMINE 100MG TABLET PO SCH (09:25)
[2019-08-08] MEDS: MULTIVITAMINS/MINERALS TABLET PO SCH ×2 (09:25→21:27)
[2019-08-08] MEDS: SENNA/DOCUSATE TABLET PO SCH (09:25)
[2019-08-08] MEDS: ERGOCALCIFEROL 50,000 UNIT CAPSULE PO SCH (10:27)
[2019-08-08] MEDS: CEFTRIAXONE PMX 2GM/50ML 50 ML IV SCH (10:27)
[2019-08-08 13:24] VITALS: BP 106/60
[2019-08-08] MEDS ORDERED: hydrALAzine 20 MG/ML, 1ML IV PRN (14:00)
[2019-08-08 16:39] VITALS: BP 147/75
[2019-08-08 19:04] VITALS: BP_SYST 166; BP_SYST 172; BP_DIAS 68; BP_DIAS 73
[2019-08-08] MEDS: ATORVASTATIN 20 MG TABLET PO SCH (21:27)
[2019-08-09] MEDS: PANTOPRAZOLE 40MG TABLET PO SCH (05:36)
[2019-08-09 06:25] VITALS: BP 162/80
[2019-08-09] MEDS: INSULIN LISPRO 100 UNITS/ML, PEN SQ-INSULIN SCH ×4 (07:00→20:06)
[2019-08-09] MEDS: SENNA/DOCUSATE TABLET PO SCH (09:00)
[2019-08-09] MEDS: THIAMINE 100MG TABLET PO SCH (09:20)
[2019-08-09] MEDS: MULTIVITAMINS/MINERALS TABLET PO SCH ×2 (09:20→20:04)
[2019-08-09] MEDS: OMEGA-3/FISH OIL CAPSULE PO SCH ×2 (09:20→20:04)
[2019-08-09] MEDS: DILTIAZEM 60 MG TABLET PO SCH ×2 (09:20→20:05)
[2019-08-09] MEDS: FOLIC ACID 1 MG TABLET PO SCH (09:21)
[2019-08-09] MEDS: CYANOCOBALOMIN 100MCG TABLET PO SCH (09:21)
[2019-08-09] MEDS: TAMSULOSIN 0.4 MG CAP.ER.24H PO SCH (09:22)
[2019-08-09] MEDS: metFORMIN 500 MG TABLET PO SCH ×2 (09:22→20:05)
[2019-08-09] MEDS: APIXABAN 5 MG TABLET PO SCH ×2 (09:22→20:05)
[2019-08-09] MEDS: METOPROLOL TARTRATE 50 MG TAB PO SCH ×2 (09:22→20:04)
[2019-08-09] MEDS: CEFTRIAXONE PMX 2GM/50ML 50 ML IV SCH (09:24)
[2019-08-09 13:28] VITALS: BP 132/80
[2019-08-09 19:42] VITALS: BP 161/63
[2019-08-09] MEDS: ATORVASTATIN 20 MG TABLET PO SCH (20:05)
[2019-08-10] MEDS: PANTOPRAZOLE 40MG TABLET PO SCH (05:36)
[2019-08-10 05:46] LABS: ANION GAP 7 mmol/L (5-15); CALCIUM 8.8 mg/dL (8.5-10.1); CHLORIDE 100 mmol/L (98-107)
[2019-08-10 06:08] LABS: MEAN CORPUSCULAR HEMOGLOBIN 32.3 pg (27.5-34.5); MEAN CORPUSCULAR HGB CONC 32.4 g/dL (33.2-36.2); MEAN CORPUSCULAR VOLUME 99.5 fL (81-97); MEAN PLATELET VOLUME 8.6 fL (7.4-10.4); PLATELET COUNT 323 x10^3/uL (130-400); RED CELL DISTRIBUTION WIDTH 17.1 % (9.4-14.8)
[2019-08-10 06:34] LABS: BASOPHILS # (AUTO) 0.02 x10^3/uL (0-0.1); BASOPHILS % (AUTO) 0 % (0-1); EOSINOPHILS # (AUTO) 0.26 x10^3/uL (0-0.4); EOSINOPHILS % (AUTO) 3 % (1-7); LYMPHOCYTES % (AUTO) 24 % (22-44); MD SCAN; MONOCYTES # (AUTO) 0.79 x10^3/uL (0.2-0.8); MONOCYTES % (AUTO) 9 % (2-9); NEUTROPHILS # (AUTO) 5.55 x10^3/uL (1.8-6.8); NEUTROPHILS % (AUTO) 64 % (42-75)
[2019-08-10] MEDS: INSULIN LISPRO 100 UNITS/ML, PEN SQ-INSULIN SCH ×4 (07:00→20:59)
[2019-08-10 07:06] VITALS: BP 147/70
[2019-08-10] MEDS: FOLIC ACID 1 MG TABLET PO SCH (08:43)
[2019-08-10] MEDS: THIAMINE 100MG TABLET PO SCH (08:44)
[2019-08-10] MEDS: DILTIAZEM 60 MG TABLET PO SCH ×2 (08:44→20:11)
[2019-08-10] MEDS: METOPROLOL TARTRATE 50 MG TAB PO SCH ×2 (08:44→20:11)
[2019-08-10] MEDS: CYANOCOBALOMIN 100MCG TABLET PO SCH (08:44)
[2019-08-10] MEDS: OMEGA-3/FISH OIL CAPSULE PO SCH ×2 (08:44→20:11)
[2019-08-10] MEDS: TAMSULOSIN 0.4 MG CAP.ER.24H PO SCH (08:46)
[2019-08-10] MEDS: metFORMIN 500 MG TABLET PO SCH ×2 (08:46→20:10)
[2019-08-10] MEDS: APIXABAN 5 MG TABLET PO SCH ×2 (08:46→20:10)
[2019-08-10] MEDS: MULTIVITAMINS/MINERALS TABLET PO SCH ×2 (08:46→20:10)
[2019-08-10] MEDS: SENNA/DOCUSATE TABLET PO SCH (08:50)
[2019-08-10] MEDS: CALCITRIOL 0.25 MCG CAPSULE PO SCH (10:56)
[2019-08-10] MEDS: CEFTRIAXONE PMX 2GM/50ML 50 ML IV SCH (10:56)
[2019-08-10 14:37] VITALS: BP 114/58
[2019-08-10 19:33] VITALS: BP 151/69
[2019-08-10] MEDS: ATORVASTATIN 20 MG TABLET PO SCH (20:10)
[2019-08-11] MEDS: PANTOPRAZOLE 40MG TABLET PO SCH (06:13)
[2019-08-11 08:18] VITALS: BP 126/57
[2019-08-11] MEDS: INSULIN LISPRO 100 UNITS/ML, PEN SQ-INSULIN SCH ×4 (08:23→20:48)
[2019-08-11] MEDS: SENNA/DOCUSATE TABLET PO SCH (08:24)
[2019-08-11] MEDS: METOPROLOL TARTRATE 50 MG TAB PO SCH ×2 (08:24→20:46)
[2019-08-11] MEDS: THIAMINE 100MG TABLET PO SCH (08:24)
[2019-08-11] MEDS: FOLIC ACID 1 MG TABLET PO SCH (08:25)
[2019-08-11] MEDS: metFORMIN 500 MG TABLET PO SCH ×2 (08:25→20:46)
[2019-08-11] MEDS: MULTIVITAMINS/MINERALS TABLET PO SCH ×2 (08:25→20:46)
[2019-08-11] MEDS: DILTIAZEM 60 MG TABLET PO SCH ×2 (08:25→20:50)
[2019-08-11] MEDS: APIXABAN 5 MG TABLET PO SCH ×2 (08:25→20:46)
[2019-08-11] MEDS: OMEGA-3/FISH OIL CAPSULE PO SCH ×2 (08:25→20:50)
[2019-08-11] MEDS: TAMSULOSIN 0.4 MG CAP.ER.24H PO SCH (08:25)
[2019-08-11] MEDS: CYANOCOBALOMIN 100MCG TABLET PO SCH (08:26)
[2019-08-11] MEDS: CEFTRIAXONE PMX 2GM/50ML 50 ML IV SCH (11:08)
[2019-08-11 13:37] VITALS: BP 126/52
[2019-08-11 20:45] VITALS: BP 157/79
[2019-08-11] MEDS: ATORVASTATIN 20 MG TABLET PO SCH (20:46)
[2019-08-12 00:05] VITALS: BP 167/76
[2019-08-12] MEDS: PANTOPRAZOLE 40MG TABLET PO SCH (05:22)
[2019-08-12 08:12] VITALS: BP 148/66
[2019-08-12] MEDS: INSULIN LISPRO 100 UNITS/ML, PEN SQ-INSULIN SCH ×4 (10:40→19:56)
[2019-08-12] MEDS: SENNA/DOCUSATE TABLET PO SCH (10:50)
[2019-08-12] MEDS: OMEGA-3/FISH OIL CAPSULE PO SCH ×2 (10:56→19:55)
[2019-08-12] MEDS: FOLIC ACID 1 MG TABLET PO SCH (10:56)
[2019-08-12] MEDS: TAMSULOSIN 0.4 MG CAP.ER.24H PO SCH (10:56)
[2019-08-12] MEDS: MULTIVITAMINS/MINERALS TABLET PO SCH ×2 (10:56→19:55)
[2019-08-12] MEDS: APIXABAN 5 MG TABLET PO SCH ×2 (10:56→19:54)
[2019-08-12] MEDS: metFORMIN 500 MG TABLET PO SCH ×2 (10:56→19:55)
[2019-08-12] MEDS: THIAMINE 100MG TABLET PO SCH (10:56)
[2019-08-12] MEDS: METOPROLOL TARTRATE 50 MG TAB PO SCH ×2 (10:56→19:59)
[2019-08-12] MEDS: DILTIAZEM 60 MG TABLET PO SCH ×2 (10:57→19:55)
[2019-08-12] MEDS: CYANOCOBALOMIN 100MCG TABLET PO SCH (12:10)
[2019-08-12] MEDS: CEFTRIAXONE PMX 2GM/50ML 50 ML IV SCH (12:10)
[2019-08-12 15:11] VITALS: BP 129/65
[2019-08-12 17:30] VITALS: BP 131/67
[2019-08-12 18:59] VITALS: BP 154/76
[2019-08-12] MEDS: ATORVASTATIN 20 MG TABLET PO SCH (19:55)
[2019-08-13 00:05] VITALS: BP 133/70
[2019-08-13 05:08] LABS: CREATININE 1.13 mg/dL (0.7-1.3)
[2019-08-13] MEDS: PANTOPRAZOLE 40MG TABLET PO SCH (05:32)
[2019-08-13] MEDS: INSULIN LISPRO 100 UNITS/ML, PEN SQ-INSULIN SCH ×4 (07:49→20:08)
[2019-08-13 08:07] VITALS: BP 116/59
[2019-08-13] MEDS: FOLIC ACID 1 MG TABLET PO SCH (10:59)
[2019-08-13] MEDS: APIXABAN 5 MG TABLET PO SCH ×2 (10:59→20:08)
[2019-08-13] MEDS: CYANOCOBALOMIN 100MCG TABLET PO SCH (10:59)
[2019-08-13] MEDS: TAMSULOSIN 0.4 MG CAP.ER.24H PO SCH (10:59)
[2019-08-13] MEDS: THIAMINE 100MG TABLET PO SCH (11:00)
[2019-08-13] MEDS: metFORMIN 500 MG TABLET PO SCH ×2 (11:00→20:08)
[2019-08-13] MEDS: OMEGA-3/FISH OIL CAPSULE PO SCH ×2 (11:00→20:08)
[2019-08-13] MEDS: METOPROLOL TARTRATE 50 MG TAB PO SCH ×2 (11:00→20:08)
[2019-08-13] MEDS: MULTIVITAMINS/MINERALS TABLET PO SCH ×2 (11:00→20:08)
[2019-08-13] MEDS: SENNA/DOCUSATE TABLET PO SCH (11:00)
[2019-08-13] MEDS: DILTIAZEM 60 MG TABLET PO SCH ×2 (11:00→20:08)
[2019-08-13] MEDS: CEFTRIAXONE PMX 2GM/50ML 50 ML IV SCH (11:01)
[2019-08-13 14:28] VITALS: BP 106/63
[2019-08-13 19:42] VITALS: BP 162/66
[2019-08-13] MEDS: ATORVASTATIN 20 MG TABLET PO SCH (20:08)
[2019-08-14 01:08] VITALS: BP 152/75
[2019-08-14] MEDS: PANTOPRAZOLE 40MG TABLET PO SCH (06:04)
[2019-08-14 06:30] VITALS: BP 157/71
[2019-08-14] MEDS: INSULIN LISPRO 100 UNITS/ML, PEN SQ-INSULIN SCH ×4 (07:55→21:00)
[2019-08-14 08:29] VITALS: BP 128/70
[2019-08-14] MEDS: METOPROLOL TARTRATE 50 MG TAB PO SCH ×2 (08:29→21:30)
[2019-08-14] MEDS: CALCITRIOL 0.25 MCG CAPSULE PO SCH (08:29)
[2019-08-14] MEDS: THIAMINE 100MG TABLET PO SCH (08:30)
[2019-08-14] MEDS: metFORMIN 500 MG TABLET PO SCH ×2 (08:30→21:31)
[2019-08-14] MEDS: SENNA/DOCUSATE TABLET PO SCH (08:30)
[2019-08-14] MEDS: CYANOCOBALOMIN 100MCG TABLET PO SCH (08:30)
[2019-08-14] MEDS: MULTIVITAMINS/MINERALS TABLET PO SCH ×2 (08:30→21:30)
[2019-08-14] MEDS: OMEGA-3/FISH OIL CAPSULE PO SCH ×2 (08:31→21:30)
[2019-08-14] MEDS: APIXABAN 5 MG TABLET PO SCH ×2 (08:31→21:31)
[2019-08-14] MEDS: FOLIC ACID 1 MG TABLET PO SCH (08:31)
[2019-08-14] MEDS: DILTIAZEM 60 MG TABLET PO SCH ×2 (08:31→21:31)
[2019-08-14] MEDS: TAMSULOSIN 0.4 MG CAP.ER.24H PO SCH (08:31)
[2019-08-14] MEDS: CEFTRIAXONE PMX 2GM/50ML 50 ML IV SCH (10:24)
[2019-08-14 13:51] VITALS: BP 98/50
[2019-08-14 17:46] VITALS: BP 143/73
[2019-08-14 18:54] VITALS: BP 153/67
[2019-08-14] MEDS: ATORVASTATIN 20 MG TABLET PO SCH (21:31)
[2019-08-15 01:04] VITALS: BP 127/52
[2019-08-15 06:36] VITALS: BP 151/75
[2019-08-15] MEDS: PANTOPRAZOLE 40MG TABLET PO SCH (06:47)
[2019-08-15] MEDS: INSULIN LISPRO 100 UNITS/ML, PEN SQ-INSULIN SCH ×2 (07:56→11:44)
[2019-08-15] MEDS: ERGOCALCIFEROL 50,000 UNIT CAPSULE PO SCH (08:57)
[2019-08-15] MEDS: DILTIAZEM 60 MG TABLET PO SCH (08:58)
[2019-08-15] MEDS: CYANOCOBALOMIN 100MCG TABLET PO SCH (08:58)
[2019-08-15] MEDS: APIXABAN 5 MG TABLET PO SCH (08:58)
[2019-08-15] MEDS: MULTIVITAMINS/MINERALS TABLET PO SCH (08:59)
[2019-08-15] MEDS: metFORMIN 500 MG TABLET PO SCH (08:59)
[2019-08-15] MEDS: TAMSULOSIN 0.4 MG CAP.ER.24H PO SCH (08:59)
[2019-08-15] MEDS: SENNA/DOCUSATE TABLET PO SCH (09:03)
[2019-08-15 09:05] VITALS: BP 90/48
[2019-08-15] MEDS: METOPROLOL TARTRATE 50 MG TAB PO SCH (09:06)
[2019-08-15] MEDS: FOLIC ACID 1 MG TABLET PO SCH (09:08)
[2019-08-15] MEDS: OMEGA-3/FISH OIL CAPSULE PO SCH (09:08)
[2019-08-15] MEDS: THIAMINE 100MG TABLET PO SCH (09:16)
[2019-08-15] MEDS ORDERED: TAMS-11 PO (11:11)
[2019-08-15] MEDS: CEFTRIAXONE PMX 2GM/50ML 50 ML IV SCH (11:43)
[2019-08-15 13:13] VITALS: BP 133/62
== END 2019-08-15 15:52 | DRG 871 ==
LOC: ED 18:55 → EDIP 19:02 → ED 19:04 → 3N 19:53
PROVIDERS: ADMIT Family Medicine; ATTEND Family Medicine
PROC: 0T9B70Z Drainage of Bladder with Drainage Device, Via Natural or Artificial Opening (ICD-10-PCS; principal; 2019-08-07)
DX: A41.9 Sepsis, unspecified organism (principal); G93.41 Metabolic encephalopathy; N17.0 Acute kidney failure with tubular necrosis; E87.2 Acidosis; L97.319 Non-pressure chronic ulcer of right ankle with unspecified severity; L03.115 Cellulitis of right lower limb; D68.59 Other primary thrombophilia; F10.239 Alcohol dependence with withdrawal, unspecified; N17.9 Acute kidney failure, unspecified; E87.6 Hypokalemia; I48.0 Paroxysmal atrial fibrillation; I83.009 Varicose veins of unspecified lower extremity with ulcer of unspecified site; R65.20 Severe sepsis without septic shock; B95.1 Streptococcus, group B, as the cause of diseases classified elsewhere; E83.42 Hypomagnesemia; B95.4 Other streptococcus as the cause of diseases classified elsewhere; E11.40 Type 2 diabetes mellitus with diabetic neuropathy, unspecified; E78.5 Hyperlipidemia, unspecified; F03.90 Unspecified dementia, unspecified severity, without behavioral disturbance, psychotic disturbance, mood disturbance, and anxiety; F41.1 Generalized anxiety disorder; I10 Essential (primary) hypertension; N40.1 Benign prostatic hyperplasia with lower urinary tract symptoms; D53.9 Nutritional anemia, unspecified; R33.8 Other retention of urine; F17.200 Nicotine dependence, unspecified, uncomplicated; Z79.01 Long term (current) use of anticoagulants; Z79.84 Long term (current) use of oral hypoglycemic drugs; Z82.49 Family history of ischemic heart disease and other diseases of the circulatory system; Z88.8 Allergy status to other drugs, medicaments and biological substances; Z80.9 Family history of malignant neoplasm, unspecified; Z79.899 Other long term (current) drug therapy
CPT/HCPCS: 36415; 84145; 96361; 96365; 99285; J7613; 71045; 80048; 80053; 80202; 81001; 82306; 82565; 82607; 82962; 83036; 83605; 83735; 84443; 85025; 85610; 87040; 87070; 87147; 87181; 87205; 93005; 93308; 93321; 93325; 94640; G0378; J0295; J0696; J2543; J3370; J3480; A9575; J0360; J1630; J1815; J1940; J2270; J3475; J3490; J7030; J7040; J7050

== ENCOUNTER → 2019-08-18 | Outpatient (CLI) | payer MEDICARE ==
[~2019-08-18] MED LIST changes: +DOXY100C2 PO; +TAMS-11 PO
== END | disposition home or self-care (01) ==
LOC: WOUND 13:33
PROVIDERS: ATTEND Nurse Practitioner Family
DX: E11.622 Type 2 diabetes mellitus with other skin ulcer (principal); L89.516 Pressure-induced deep tissue damage of right ankle; L97.311 Non-pressure chronic ulcer of right ankle limited to breakdown of skin; E11.621 Type 2 diabetes mellitus with foot ulcer; L97.511 Non-pressure chronic ulcer of other part of right foot limited to breakdown of skin; I25.10 Atherosclerotic heart disease of native coronary artery without angina pectoris; I42.9 Cardiomyopathy, unspecified; E78.5 Hyperlipidemia, unspecified; I48.0 Paroxysmal atrial fibrillation; I11.0 Hypertensive heart disease with heart failure; I50.9 Heart failure, unspecified; F32.9 Major depressive disorder, single episode, unspecified; Z87.891 Personal history of nicotine dependence
CPT/HCPCS: 11042

== ENCOUNTER 2019-08-23 10:49 | Emergency (ER) | payer MEDICARE ==
[~2019-08-23] VITALS: Ht 170.2 cm; Wt 56.1 kg
--- NOTE | 2019-08-23 11:00 | NUR ---
MARMOLEJO CATH IRRIGATED WITH APPROX 70 CC STERILE WATER. THERE WAS SOME RESISTANCE AT FIRST THAT ONCE CLEARED ALLOWED A STEADY FLOW OF URINE TO DRAIN. UA OBTAINED. PT TOLERATED WELL.
[2019-08-23] MEDS ORDERED: MORPHINE SULFATE 4 MG/ML, 1ML ONE (11:07)
--- NOTE | 2019-08-23 11:08 | NUR ---
KELLY RN: THIS IS AN 84 YO MALE PT BIB [facility] C/O PAIN AND DYSURIA SINCE THIS MORNING. PT HAS INDWELLING CATHETER. PT BLADDER SCANNED BY [employer] FORMAN. PT IS POOR HISTORIAN AND UNABLE TO SAY WHEN/HOW LONG CATHETER HAS BEEN IN PLACE. PT GIVEN 4 MG ZOFRAN AND 100 MCG FENTANYL BY EMS DEPUTY CHIEF COUNSEL. FS 256. REPORT TO PRIMARY RN ROSIE.
[2019-08-23 11:19] LABS: MEAN CORPUSCULAR HEMOGLOBIN 31.4 pg (27.5-34.5); MEAN CORPUSCULAR HGB CONC 32.1 g/dL (33.2-36.2); MEAN CORPUSCULAR VOLUME 97.7 fL (81-97); MEAN PLATELET VOLUME 8.3 fL (7.4-10.4); PLATELET COUNT 304 x10^3/uL (130-400); RED BLOOD COUNT 4.29 x10^6/uL (4.38-5.82)
[2019-08-23] MEDS ORDERED: GABA300C10 PO (11:19)
[2019-08-23] MEDS ORDERED: METO25TA35 PO (11:19)
[2019-08-23] MEDS ORDERED: CALCIUM PO (11:19)
[2019-08-23 11:28] LABS: ALBUMIN 3.8 g/dL (3.4-5.0); ANION GAP 14 mmol/L (5-15); CALCIUM 10.2 mg/dL (8.5-10.1); CHLORIDE 103 mmol/L (98-107); CREATININE 1.52 mg/dL (0.7-1.3)
[2019-08-23 11:30] LABS: INTERNATIONAL NORMALIZED RATIO 1.06 (0.93-1.1); PROTHROMBIN TIME 11.2 Seconds (9.6-11.5)
[2019-08-23] MEDS ORDERED: FLUCONAZOLE 100 MG TABLET PO ONE (11:30)
[2019-08-23] MEDS ORDERED: SULFAMETH./TRIMETHOPRIM DS 800MG/160MG TABLET PO ONE (11:30)
[2019-08-23] MEDS ORDERED: morphine SULFATE 10 MG/ML, 1ML IVPush ONE (11:30)
[2019-08-23] MEDS ORDERED: LIDOCAINE 2%,20 ML JEL.PF.APP MM ONE ×2 (11:30)
[2019-08-23 11:37] LABS: BASOPHILS # (AUTO) 0.09 x10^3/uL (0-0.1); BASOPHILS % (AUTO) 1 % (0-1); EOSINOPHILS # (AUTO) 0.01 x10^3/uL (0-0.4); EOSINOPHILS % (AUTO) 0 % (1-7); LYMPHOCYTES # (AUTO) 2.12 x10^3/uL (1-3.4); LYMPHOCYTES % (AUTO) 14 % (22-44); MD MORPH REVIEW ONLY; MONOCYTES # (AUTO) 0.73 x10^3/uL (0.2-0.8); MONOCYTES % (AUTO) 5 % (2-9); NEUTROPHILS # (AUTO) 11.75 x10^3/uL (1.8-6.8); NEUTROPHILS % (AUTO) 80 % (42-75)
[2019-08-23 11:38] LABS: <PLATELET ESTIMATE> ADEQUATE; <PLT MORPHOLOGY> NORMAL PLT MORPH; ANISOCYTOSIS 1+
[2019-08-23] MEDS ORDERED: SULFAMETH./TRIMETHOPRIM DS 800MG/160MG TABLET ONE (11:42)
[2019-08-23] MEDS ORDERED: FLUCONAZOLE 100 MG TABLET ONE (11:42)
[2019-08-23 11:47] VITALS: BP 116/67
== END 2019-08-23 12:54 | disposition home or self-care (01) ==
LOC: ED 11:20
DX: B37.42 Candidal balanitis (principal); N47.6 Balanoposthitis; R33.9 Retention of urine, unspecified; N47.1 Phimosis; I10 Essential (primary) hypertension; I48.91 Unspecified atrial fibrillation; K21.9 Gastro-esophageal reflux disease without esophagitis; E11.9 Type 2 diabetes mellitus without complications; E78.5 Hyperlipidemia, unspecified
CPT/HCPCS: 36415; 80048; 82040; 85025; 85610; 85730; 96374; 99284; J2270

== ENCOUNTER 2019-08-24 12:39 | Inpatient (IN) | payer MEDICARE ==
[~2019-08-24] VITALS: Ht 170.2 cm; Wt 69.0 kg
[~2019-08-24 12:39] MED LIST changes: +CALCIUM PO
--- NOTE | 2019-08-24 13:00 | NUR ---
PT LIVES WITH HIS SON AND [id number]. PT W/ MARMOLEJO CATHETER IN PLACE. POOT HISTORIAN TO WHEN CATHETER WAS PLACED, STATES "I THINK THERE WAS A STOPPAGE THAT WAS CAUSING ME DISCOMFORT" HERE TODAY 2/2 CATHETER DIDN'T SEEM TO BE DRAINING WELL AT HOME. PT TEMP 100.1. DENIES CP, SOB, OR COUGH.
--- NOTE | 2019-08-24 13:02 | NUR ---
PT TO ROOM VIA WHEELCHAIR, UNDRESSED WITH RN ASSISTANCE AND TRANSFERED TO [facility]. PT WEAK AND SHUFFLES HIS FEET. STATES UP UNTIL LAST SATURDAY HE WAS "GETTING AROUND FINE, BUT SINCE SATURDAY BEEN NEEDING A WALKER" RA SAT AFTER THE ABOVE ACTIVITY = 88%, 2L NC PLACED. CALL LIGHT W/I REACH. AWAITING ER PROVIDER ENEDINA.
--- NOTE | 2019-08-24 13:24 | NUR ---
SON, SHEY FLORES PH [phone]. SPOKE WITH SON AND VERIFIED CURRENT MEDICATIONS AND HEALTH HX. DR RIOS INFORMED.
[2019-08-24] MEDS ORDERED: ACETAMINOPHEN 325 MG TABLET PO ONE (13:30)
[2019-08-24] MEDS ORDERED: ACETAMINOPHEN 325 MG TABLET ONE (13:54)
[2019-08-24 14:25] LABS: ALANINE AMINOTRANSFERASE 14 U/L (12-78); ALBUMIN 2.8 g/dL (3.4-5.0); ANION GAP 6 mmol/L (5-15); CALCIUM 9.4 mg/dL (8.5-10.1); CHLORIDE 105 mmol/L (98-107); CREATININE 2.32 mg/dL (0.7-1.3)
[2019-08-24 14:26] LABS: ALKALINE PHOSPHATASE 76 U/L (45-117); BILIRUBIN,TOTAL 0.5 mg/dL (0.2-1.0); CULTURE INDICATED? YES; MICROSCOPIC INDICATED; TOTAL PROTEIN 6.8 g/dL (6.4-8.2)
[2019-08-24] MEDS ORDERED: CEFTRIAXONE PMX 1GM/50ML 50 ML IV ONE (15:00)
[2019-08-24 15:08] LABS: BASOPHILS # (AUTO) 0.02 x10^3/uL (0-0.1); BASOPHILS % (AUTO) 0 % (0-1); EOSINOPHILS # (AUTO) 0.16 x10^3/uL (0-0.4); EOSINOPHILS % (AUTO) 2 % (1-7); LYMPHOCYTES # (AUTO) 1.09 x10^3/uL (1-3.4); LYMPHOCYTES % (AUTO) 11 % (22-44); MD NO; MEAN CORPUSCULAR HEMOGLOBIN 31.5 pg (27.5-34.5); MEAN CORPUSCULAR HGB CONC 32.5 g/dL (33.2-36.2); MEAN CORPUSCULAR VOLUME 96.9 fL (81-97); MEAN PLATELET VOLUME 9.1 fL (7.4-10.4); MONOCYTES # (AUTO) 0.57 x10^3/uL (0.2-0.8); MONOCYTES % (AUTO) 6 % (2-9); NEUTROPHILS # (AUTO) 8.51 x10^3/uL (1.8-6.8); NEUTROPHILS % (AUTO) 82 % (42-75); PLATELET COUNT 220 x10^3/uL (130-400); RED BLOOD COUNT 3.37 x10^6/uL (4.38-5.82); RED CELL DISTRIBUTION WIDTH 17.2 % (9.4-14.8)
[2019-08-24] MEDS ORDERED: SODIUM CHLORIDE 0.9% 1,000 ML IV ONE (15:23)
[2019-08-24] MEDS ORDERED: CEFTRIAXONE PMX 1GM/50ML 50 ML ONE (15:24)
[2019-08-24] MEDS ORDERED: SODIUM CHLORIDE FLUSH 10ML SYR IVF PRN (15:30)
--- NOTE | 2019-08-24 15:35 | NUR ---
IV PLACED WITHOUT DIFF AND ALL LAB DRAWN. URINE COLLECTED AND SENT FOR TESTING. PO TYLENOL GIVEN WITHOUT DIFF, IV ANTIBIOTIC GIVEN AND NACL RUNNING. PT IS A/O X3. CATH CHANGED TO COLLECTION BAG, LEG BAG PLACED IN PT BELONGING BAG FOR DISCHARGE. PT STABLE.
[2019-08-24] MEDS ORDERED: DOCUSATE 100 MG CAPSULE PO PRN (19:30)
[2019-08-24] MEDS ORDERED: DEXTROSE 50%, 50ML SYRINGE IVPush PRN (19:30)
[2019-08-24] MEDS ORDERED: GLUCAGON 1 MG IM PRN (19:30)
[2019-08-24] MEDS ORDERED: DEXTROSE 4 GM TAB.CHEW PO PRN (19:30)
[2019-08-24] MEDS ORDERED: ACETAMINOPHEN 325 MG TABLET PO PRN (19:30)
[2019-08-24] MEDS ORDERED: POLYETHYLENE GLYCOL 17 GM PACKET PO PRN (19:30)
[2019-08-24] MEDS ORDERED: HYDROcodone/APAP 5/325 TABLET PO PRN (19:30)
[2019-08-24] MEDS ORDERED: BISACODYL 10 MG SUPP PR PRN (19:30)
[2019-08-24 19:36] VITALS: BP 182/81
[2019-08-24] MEDS: INSULIN LISPRO 100 UNITS/ML, PEN SQ-INSULIN SCH (21:00)
[2019-08-24] MEDS: METOPROLOL TARTRATE 25 MG TAB PO SCH (21:27)
[2019-08-24] MEDS: SODIUM CHLORIDE 0.9% 1,000 ML IV SCH (21:28)
[2019-08-24] MEDS: ATORVASTATIN 20 MG TABLET PO SCH (21:28)
[2019-08-24] MEDS: APIXABAN 2.5 MG TABLET PO SCH (21:28)
[2019-08-24] MEDS: GABAPENTIN 300 MG CAPSULE PO SCH (21:28)
[2019-08-24] MEDS: SODIUM CHLORIDE FLUSH 10ML SYR IVF SCH (21:29)
[2019-08-25 03:59] VITALS: BP 150/70
[2019-08-25 05:24] LABS: BASOPHILS # (AUTO) 0.03 x10^3/uL (0-0.1); BASOPHILS % (AUTO) 0 % (0-1); EOSINOPHILS % (AUTO) 4 % (1-7); LYMPHOCYTES # (AUTO) 1.48 x10^3/uL (1-3.4); LYMPHOCYTES % (AUTO) 16 % (22-44); MD NO; MEAN CORPUSCULAR HEMOGLOBIN 31.9 pg (27.5-34.5); MEAN CORPUSCULAR HGB CONC 32.8 g/dL (33.2-36.2); MEAN CORPUSCULAR VOLUME 97.2 fL (81-97); MEAN PLATELET VOLUME 8.6 fL (7.4-10.4); MONOCYTES # (AUTO) 0.66 x10^3/uL (0.2-0.8); MONOCYTES % (AUTO) 7 % (2-9); NEUTROPHILS # (AUTO) 6.96 x10^3/uL (1.8-6.8); NEUTROPHILS % (AUTO) 73 % (42-75); PLATELET COUNT 195 x10^3/uL (130-400); RED BLOOD COUNT 3.14 x10^6/uL (4.38-5.82); RED CELL DISTRIBUTION WIDTH 17.2 % (9.4-14.8)
[2019-08-25 05:38] LABS: ALBUMIN 2.4 g/dL (3.4-5.0); ANION GAP 6 mmol/L (5-15); CALCIUM 8.5 mg/dL (8.5-10.1); CHLORIDE 107 mmol/L (98-107)
[2019-08-25] MEDS: PANTOPRAZOLE 40MG TABLET PO SCH (05:38)
[2019-08-25 05:49] LABS: ALANINE AMINOTRANSFERASE 15 U/L (12-78); ALKALINE PHOSPHATASE 65 U/L (45-117); BILIRUBIN,TOTAL 0.6 mg/dL (0.2-1.0); CREATININE 1.65 mg/dL (0.7-1.3); TOTAL PROTEIN 6.1 g/dL (6.4-8.2)
[2019-08-25] MEDS: INSULIN LISPRO 100 UNITS/ML, PEN SQ-INSULIN SCH ×4 (07:00→20:05)
[2019-08-25 09:00] VITALS: BP 135/56
[2019-08-25] MEDS: SODIUM CHLORIDE FLUSH 10ML SYR IVF SCH ×2 (09:00→20:04)
[2019-08-25] MEDS: SODIUM CHLORIDE 0.9% 1,000 ML IV SCH (09:09)
[2019-08-25] MEDS: METOPROLOL TARTRATE 25 MG TAB PO SCH ×2 (09:09→20:04)
[2019-08-25] MEDS: APIXABAN 2.5 MG TABLET PO SCH ×2 (09:13→20:04)
[2019-08-25] MEDS: TAMSULOSIN 0.4 MG CAP.ER.24H PO SCH (09:13)
[2019-08-25] MEDS: GABAPENTIN 300 MG CAPSULE PO SCH ×2 (09:13→20:04)
[2019-08-25] MEDS: FOLIC ACID 1 MG TABLET PO SCH (09:13)
[2019-08-25] MEDS: SENNA/DOCUSATE TABLET PO SCH (11:57)
[2019-08-25] MEDS: PHENAZOPYRIDINE 100 MG TABLET PO PRN ×2 (12:50→23:19)
[2019-08-25] MEDS ORDERED: hydrALAzine 20 MG/ML, 1ML IV PRN (13:30)
[2019-08-25] MEDS ORDERED: CEFTRIAXONE PMX 1GM/50ML 50 ML IV SCH (15:00)
[2019-08-25 16:21] VITALS: BP 145/60
[2019-08-25 19:33] VITALS: BP 151/73
[2019-08-25] MEDS: ATORVASTATIN 20 MG TABLET PO SCH (20:04)
[2019-08-26 01:20] VITALS: BP 148/69
[2019-08-26 05:59] LABS: BASOPHILS # (AUTO) 0.03 x10^3/uL (0-0.1); BASOPHILS % (AUTO) 0 % (0-1); EOSINOPHILS # (AUTO) 0.22 x10^3/uL (0-0.4); EOSINOPHILS % (AUTO) 2 % (1-7); LYMPHOCYTES # (AUTO) 1.58 x10^3/uL (1-3.4); LYMPHOCYTES % (AUTO) 15 % (22-44); MD NO; MEAN CORPUSCULAR HEMOGLOBIN 31.2 pg (27.5-34.5); MEAN CORPUSCULAR HGB CONC 32.3 g/dL (33.2-36.2); MEAN CORPUSCULAR VOLUME 96.7 fL (81-97); MEAN PLATELET VOLUME 9.1 fL (7.4-10.4); MONOCYTES # (AUTO) 0.72 x10^3/uL (0.2-0.8); MONOCYTES % (AUTO) 7 % (2-9); NEUTROPHILS # (AUTO) 7.99 x10^3/uL (1.8-6.8); NEUTROPHILS % (AUTO) 76 % (42-75); PLATELET COUNT 219 x10^3/uL (130-400); RED BLOOD COUNT 3.71 x10^6/uL (4.38-5.82); RED CELL DISTRIBUTION WIDTH 16.7 % (9.4-14.8)
[2019-08-26 06:02] LABS: ANION GAP 10 mmol/L (5-15); CALCIUM 8.8 mg/dL (8.5-10.1); CHLORIDE 104 mmol/L (98-107); CREATININE 1.29 mg/dL (0.7-1.3)
[2019-08-26] MEDS: PANTOPRAZOLE 40MG TABLET PO SCH (06:17)
[2019-08-26 07:07] VITALS: BP 191/112
[2019-08-26] MEDS: METOPROLOL TARTRATE 25 MG TAB PO SCH ×2 (07:44→20:13)
[2019-08-26] MEDS: TAMSULOSIN 0.4 MG CAP.ER.24H PO SCH (07:44)
[2019-08-26] MEDS: APIXABAN 2.5 MG TABLET PO SCH (07:44)
[2019-08-26] MEDS: GABAPENTIN 300 MG CAPSULE PO SCH ×2 (07:44→20:14)
[2019-08-26] MEDS: FOLIC ACID 1 MG TABLET PO SCH (07:44)
[2019-08-26] MEDS: SENNA/DOCUSATE TABLET PO SCH (07:45)
[2019-08-26] MEDS: SODIUM CHLORIDE FLUSH 10ML SYR IVF SCH ×2 (08:26→20:13)
[2019-08-26] MEDS: INSULIN LISPRO 100 UNITS/ML, PEN SQ-INSULIN SCH ×4 (08:26→20:02)
[2019-08-26 08:48] VITALS: BP 180/115
[2019-08-26 10:31] LABS: TROPONIN I < 0.015 ng/mL (0.000-0.045)
[2019-08-26] MEDS ORDERED: OXYBUTYNIN CHLORIDE 5 MG TABLET PO PRN (11:00)
[2019-08-26] MEDS: PHENAZOPYRIDINE 100 MG TABLET PO PRN ×2 (11:18→18:28)
[2019-08-26] MEDS: LINEZOLID PMX 600MG/300ML 300 ML IV SCH (11:58)
[2019-08-26 12:47] VITALS: BP 174/90
[2019-08-26 16:12] VITALS: BP 161/94
[2019-08-26 18:23] VITALS: BP 148/77
[2019-08-26] MEDS: ATORVASTATIN 20 MG TABLET PO SCH (20:13)
[2019-08-26] MEDS: APIXABAN 5 MG TABLET PO SCH (20:13)
[2019-08-27] MEDS: LINEZOLID PMX 600MG/300ML 300 ML IV SCH ×3 (00:03→20:07)
[2019-08-27 00:29] VITALS: BP 161/78
[2019-08-27] MEDS: PANTOPRAZOLE 40MG TABLET PO SCH (06:04)
[2019-08-27 06:07] LABS: ANION GAP 7 mmol/L (5-15); CHLORIDE 106 mmol/L (98-107); CREATININE 1.14 mg/dL (0.7-1.3)
[2019-08-27 06:14] LABS: BASOPHILS # (AUTO) 0.03 x10^3/uL (0-0.1); BASOPHILS % (AUTO) 0 % (0-1); EOSINOPHILS # (AUTO) 0.22 x10^3/uL (0-0.4); EOSINOPHILS % (AUTO) 3 % (1-7); LYMPHOCYTES # (AUTO) 1.48 x10^3/uL (1-3.4); LYMPHOCYTES % (AUTO) 21 % (22-44); MD NO; MEAN CORPUSCULAR HEMOGLOBIN 31.5 pg (27.5-34.5); MEAN CORPUSCULAR HGB CONC 32.6 g/dL (33.2-36.2); MEAN CORPUSCULAR VOLUME 96.7 fL (81-97); MEAN PLATELET VOLUME 8.8 fL (7.4-10.4); MONOCYTES % (AUTO) 9 % (2-9); NEUTROPHILS # (AUTO) 4.62 x10^3/uL (1.8-6.8); NEUTROPHILS % (AUTO) 67 % (42-75); PLATELET COUNT 196 x10^3/uL (130-400); RED BLOOD COUNT 3.35 x10^6/uL (4.38-5.82); RED CELL DISTRIBUTION WIDTH 17.1 % (9.4-14.8)
[2019-08-27] MEDS: INSULIN LISPRO 100 UNITS/ML, PEN SQ-INSULIN SCH ×4 (07:00→20:47)
[2019-08-27 07:08] VITALS: BP 168/92
[2019-08-27] MEDS: METOPROLOL TARTRATE 25 MG TAB PO SCH ×2 (07:58→20:48)
[2019-08-27] MEDS: FOLIC ACID 1 MG TABLET PO SCH (07:58)
[2019-08-27] MEDS: GABAPENTIN 300 MG CAPSULE PO SCH ×2 (07:58→20:49)
[2019-08-27] MEDS: APIXABAN 5 MG TABLET PO SCH ×2 (07:58→20:49)
[2019-08-27] MEDS: TAMSULOSIN 0.4 MG CAP.ER.24H PO SCH (07:58)
[2019-08-27] MEDS: SODIUM CHLORIDE FLUSH 10ML SYR IVF SCH ×2 (07:59→20:49)
[2019-08-27] MEDS: SENNA/DOCUSATE TABLET PO SCH (07:59)
[2019-08-27] MEDS: FLUCONAZOLE 200 MG/100 ML 100 ML IV SCH (09:11)
[2019-08-27 14:13] VITALS: BP 147/76
[2019-08-27] MEDS: ATORVASTATIN 20 MG TABLET PO SCH (20:49)
[2019-08-27 20:52] VITALS: BP 164/82
[2019-08-28 00:58] VITALS: BP 151/73
[2019-08-28] MEDS: PANTOPRAZOLE 40MG TABLET PO SCH (05:20)
[2019-08-28] MEDS: FLUCONAZOLE 200 MG/100 ML 100 ML IV SCH (07:41)
[2019-08-28] MEDS: METOPROLOL TARTRATE 25 MG TAB PO SCH (07:41)
[2019-08-28] MEDS: SENNA/DOCUSATE TABLET PO SCH (07:42)
[2019-08-28] MEDS: APIXABAN 5 MG TABLET PO SCH (07:42)
[2019-08-28] MEDS: TAMSULOSIN 0.4 MG CAP.ER.24H PO SCH (07:42)
[2019-08-28] MEDS: GABAPENTIN 300 MG CAPSULE PO SCH (07:42)
[2019-08-28] MEDS: FOLIC ACID 1 MG TABLET PO SCH (07:42)
[2019-08-28] MEDS: INSULIN LISPRO 100 UNITS/ML, PEN SQ-INSULIN SCH ×2 (07:46→12:24)
[2019-08-28 07:50] VITALS: BP 131/78
[2019-08-28] MEDS ORDERED: AMLO-150 PO (08:48)
[2019-08-28] MEDS ORDERED: LINE600T15 PO (08:48)
[2019-08-28] MEDS ORDERED: METO25TA35 PO (08:48)
[2019-08-28] MEDS ORDERED: FLUC200T PO (08:48)
[2019-08-28] MEDS ORDERED: AMLODIPINE 5 MG TABLET PO SCH (09:00)
[2019-08-28] MEDS ORDERED: CALCITRIOL 0.25 MCG CAPSULE PO SCH (09:00)
[2019-08-28] MEDS: LINEZOLID PMX 600MG/300ML 300 ML IV SCH (09:02)
[2019-08-28] MEDS: SODIUM CHLORIDE FLUSH 10ML SYR IVF SCH (09:03)
[2019-08-28 14:10] VITALS: BP 136/70
== END 2019-08-28 16:47 | disposition home health service (06) | DRG 728 ==
LOC: ED 13:12 → EDIP 15:23 → 3N 19:33
PROVIDERS: ADMIT Internal Medicine; ATTEND Internal Medicine
PROC: 0T9B70Z Drainage of Bladder with Drainage Device, Via Natural or Artificial Opening (ICD-10-PCS; principal; 2019-08-24)
DX: B37.41 Candidal cystitis and urethritis (principal); N17.9 Acute kidney failure, unspecified; D68.69 Other thrombophilia; I48.20 Chronic atrial fibrillation, unspecified; L97.919 Non-pressure chronic ulcer of unspecified part of right lower leg with unspecified severity; Z16.21 Resistance to vancomycin; I48.0 Paroxysmal atrial fibrillation; Z88.8 Allergy status to other drugs, medicaments and biological substances; E11.9 Type 2 diabetes mellitus without complications; E78.5 Hyperlipidemia, unspecified; F03.90 Unspecified dementia, unspecified severity, without behavioral disturbance, psychotic disturbance, mood disturbance, and anxiety; F10.20 Alcohol dependence, uncomplicated; F17.200 Nicotine dependence, unspecified, uncomplicated; F41.1 Generalized anxiety disorder; I10 Essential (primary) hypertension; I83.019 Varicose veins of right lower extremity with ulcer of unspecified site; K80.20 Calculus of gallbladder without cholecystitis without obstruction; N35.919 Unspecified urethral stricture, male, unspecified site; N40.0 Benign prostatic hyperplasia without lower urinary tract symptoms; Z66 Do not resuscitate; Z79.01 Long term (current) use of anticoagulants; Z82.49 Family history of ischemic heart disease and other diseases of the circulatory system; B95.2 Enterococcus as the cause of diseases classified elsewhere
CPT/HCPCS: 36415; 71045; 74176; 80048; 80053; 81001; 82962; 83605; 83735; 84100; 84443; 84484; 85025; 87040; 87070; 87077; 87086; 87106; 87186; 87205; 93005; 93926; 96365; G0378; J0696; J2020; J0360; J1450; J1815; J7030

== ENCOUNTER → 2020-01-13 | Outpatient (CLI) | payer MEDICARE ==
[~2020-01-13] MED LIST changes: +FLUC200T PO; -PANT40TA5 PO; +PANT40TA6 PO
== END | disposition home or self-care (01) ==
LOC: WOUND 08:22
PROVIDERS: ATTEND Internal Medicine
DX: E11.621 Type 2 diabetes mellitus with foot ulcer (principal); I83.015 Varicose veins of right lower extremity with ulcer other part of foot; L97.511 Non-pressure chronic ulcer of other part of right foot limited to breakdown of skin; E11.40 Type 2 diabetes mellitus with diabetic neuropathy, unspecified; E78.5 Hyperlipidemia, unspecified; I25.10 Atherosclerotic heart disease of native coronary artery without angina pectoris; F41.1 Generalized anxiety disorder; I48.20 Chronic atrial fibrillation, unspecified; I48.0 Paroxysmal atrial fibrillation; F03.90 Unspecified dementia, unspecified severity, without behavioral disturbance, psychotic disturbance, mood disturbance, and anxiety; K21.9 Gastro-esophageal reflux disease without esophagitis; I11.0 Hypertensive heart disease with heart failure; I50.9 Heart failure, unspecified; F32.9 Major depressive disorder, single episode, unspecified; N40.1 Benign prostatic hyperplasia with lower urinary tract symptoms; L84 Corns and callosities; F17.290 Nicotine dependence, other tobacco product, uncomplicated; F10.239 Alcohol dependence with withdrawal, unspecified; Z79.84 Long term (current) use of oral hypoglycemic drugs; Z79.899 Other long term (current) drug therapy; Z79.01 Long term (current) use of anticoagulants; Z79.82 Long term (current) use of aspirin; Z88.8 Allergy status to other drugs, medicaments and biological substances
CPT/HCPCS: 97597; G0463

== ENCOUNTER 2020-01-20 10:56 | Outpatient (CLI) | payer MEDICARE | END 2020-01-20 23:59 | disposition home or self-care (01) | LOC: WOUND 10:56 | PROVIDERS: ATTEND Internal Medicine | DX: E11.621 Type 2 diabetes mellitus with foot ulcer (principal); I83.015 Varicose veins of right lower extremity with ulcer other part of foot; L97.511 Non-pressure chronic ulcer of other part of right foot limited to breakdown of skin; E11.40 Type 2 diabetes mellitus with diabetic neuropathy, unspecified; E78.5 Hyperlipidemia, unspecified; I25.10 Atherosclerotic heart disease of native coronary artery without angina pectoris; F41.1 Generalized anxiety disorder; I48.20 Chronic atrial fibrillation, unspecified; I48.0 Paroxysmal atrial fibrillation; F03.90 Unspecified dementia, unspecified severity, without behavioral disturbance, psychotic disturbance, mood disturbance, and anxiety; K21.9 Gastro-esophageal reflux disease without esophagitis; I11.0 Hypertensive heart disease with heart failure; I50.9 Heart failure, unspecified; F32.9 Major depressive disorder, single episode, unspecified; N40.1 Benign prostatic hyperplasia with lower urinary tract symptoms; L84 Corns and callosities; F17.290 Nicotine dependence, other tobacco product, uncomplicated; F10.239 Alcohol dependence with withdrawal, unspecified; Z79.84 Long term (current) use of oral hypoglycemic drugs; Z79.899 Other long term (current) drug therapy; Z79.01 Long term (current) use of anticoagulants; Z79.82 Long term (current) use of aspirin; Z88.8 Allergy status to other drugs, medicaments and biological substances | CPT/HCPCS: 97597 ==

== ENCOUNTER → 2020-02-03 | Outpatient (CLI) | payer MEDICARE | END | disposition home or self-care (01) | LOC: WOUND 11:03 | PROVIDERS: ATTEND Internal Medicine | DX: E11.621 Type 2 diabetes mellitus with foot ulcer (principal); I83.015 Varicose veins of right lower extremity with ulcer other part of foot; L97.518 Non-pressure chronic ulcer of other part of right foot with other specified severity; E11.40 Type 2 diabetes mellitus with diabetic neuropathy, unspecified; E78.5 Hyperlipidemia, unspecified; I25.10 Atherosclerotic heart disease of native coronary artery without angina pectoris; F41.1 Generalized anxiety disorder; I48.20 Chronic atrial fibrillation, unspecified; I48.0 Paroxysmal atrial fibrillation; F03.90 Unspecified dementia, unspecified severity, without behavioral disturbance, psychotic disturbance, mood disturbance, and anxiety; K21.9 Gastro-esophageal reflux disease without esophagitis; I11.0 Hypertensive heart disease with heart failure; I50.9 Heart failure, unspecified; F32.9 Major depressive disorder, single episode, unspecified; N40.1 Benign prostatic hyperplasia with lower urinary tract symptoms; L84 Corns and callosities; F17.290 Nicotine dependence, other tobacco product, uncomplicated; F10.239 Alcohol dependence with withdrawal, unspecified; Z79.84 Long term (current) use of oral hypoglycemic drugs; Z79.899 Other long term (current) drug therapy; Z79.01 Long term (current) use of anticoagulants; Z79.82 Long term (current) use of aspirin; Z88.8 Allergy status to other drugs, medicaments and biological substances | CPT/HCPCS: G0463 ==